=== PATIENT | male | born 1975 | race Caucasian/White ===

== ENCOUNTER 2020-11-19 09:19 | Emergency (ER) | payer OTHER, SELFPAY ==
[2020-11-19 09:33] VITALS: BP 177/112; PULSE 74; RESP 18; TEMP 36.8; O2SAT 99; BMI 36.2
[2020-11-19 09:44] VITALS: PULSE 74
[2020-11-19 09:54] VITALS: BP 157/103; PULSE 78; RESP 16; TEMP 36.8; O2SAT 98
--- NOTE | 2020-11-19 10:00 | XRR_ITS ---
PROCEDURE INFORMATION: Exam: XR Right Ankle Exam date and time: 11/19/2020 10:08 AM Age: 44 years old Clinical indication: Pain; Right; Prior surgery; Surgery date: 6+ months; Surgery type: RT ankle; Additional info: Pain, swelling, previous injury TECHNIQUE: Imaging protocol: XR Right ankle. Views: 3 or more views. COMPARISON: No relevant prior studies available. FINDINGS: Bones/joints: Orthopedic hardware noted along medial and lateral malleoli. Dystrophic calcification along the lateral aspect of the tibial metaphysis. No evidence of acute fracture. Ankle mortise intact. Soft tissues: Diffuse soft tissue swelling the ankle. XR/XR ankle RT min 3V* [id number] IMPRESSION: 1. Diffuse soft tissue swelling of the right ankle. 2. No acute fracture or dislocation. Chronic changes.
--- NOTE | 2020-11-19 10:47 | W.ED.EXTPRO ---
HPI - Extremity Problem General: Chief complaint: Extremity Problem,Nontraumatic Stated complaint: R ANKLE PAIN Time Seen by Provider: 11/19/20 09:35 Source: patient Mode of arrival: ambulatory Limitations: no limitations History of Present Illness: HPI Narrative: 44-year-old male complaining of left ankle pain, redness, swelling, and stiffness for the past 2 days. No recent trauma. He had surgery 12 years ago, initially with ORIF, then revised 1 year later with tightrope fixation for ankle syndesmosis. He has had a few instances where he is sprained the ankle and to become slightly swollen or sore, but this is the first time he has had significant pain and redness directly over the incision scar. He has tried icing, applying topical NSAID, rest, wearing a brace. He denies any recent illnesses-strep throat, UTI, pneumonia etc. Denies fever or systemic symptoms such as body aches or chills. The pain is at its worst on the first few steps after resting. Denies history of gout. No recent dietary changes?restrictive keto diet or excessive beer intake etc. MD Complaint: joint swelling and joint pain Onset (ago): day(s) Pain Consistency: constant Location: left, lower extremity and other (Ankle) Exacerbating factors: range of motion, weight bearing, walking, exertion and palpation Associated symptoms: Deny arthralgias, fever(s), myalgias or rash Review of Systems General: Reports: 10 or more systems reviewed and unremarkable except in HPI and below Const: Denies: fever(s) Resp: Denies: dyspnea, productive cough or wheezing GI: Denies: abdominal pain, nausea or vomiting : Denies: difficulty urinating, dysuria or urinary frequency Musc: Reports: joint pain, joint swelling, joint redness, joint warmth, joint stiffness and limited range of motion Skin/Breast: Reports: erythema; Denies: rash or pruritus Neuro: Denies: headache(s), numbness in extremities or weakness in extremities Physical Exam Const: COMMON NORMALS: no acute distress, patient oriented x3, healthy appearing and alert GENERAL APPEARANCE: cooperative, comfortable and well developed; not in distress, not anxious and not ill appearing ORIENTATION/CONSCIOUSNESS: Yes oriented to person, Yes oriented to place and Yes oriented to time HENMT: COMMON NORMALS: normocephalic and atraumatic HEAD & SCALP: normocephalic and atraumatic FACE & SINUS: normal facial exam and face symmetric Eye: COMMON NORMALS: Equal, round and reactive pupils present, EOMs intact bilaterally, conjunctivae normal and no scleral icterus CONJUNCTIVA: Yes conjunctivae normal PUPIL: Yes Equal, round and reactive pupils present Resp: COMMON NORMALS: normal respiratory effort and No use of accessory muscles EFFORT & INSPECTION: Yes able to speak in complete sentences Cardio: COMMON NORMALS: regular rate and regular rhythm JUGULAR VENOUS DISTENTION: no JVD RATE: regular rate RHYTHM: regular rhythm GI: COMMON NORMALS: Soft to palpation PALPATION: Yes Soft to palpation, No Tenderness to palpation present (GI), No Guarding due to palpation present (GI) and No Rigid due to palpation Extremity: LEFT LOWER EXTREMITY: Yes ankle joint Left ankle: Yes inspection (Swelling and redness over the medial malleolus), Yes palpation (Point tenderness over the medial malleolus), Yes ROM (Restricted due to pain) and Yes neurovascular exam (Intact) Neuro: COMMON NORMALS: patient oriented x3 SENSORIUM/ORIENTATION: Yes alert, Yes oriented to person, Yes oriented to place and Yes oriented to time Skin: COMMON NORMALS: no rashes or lesions noted, no wounds, turgor normal and no jaundice GENERAL SKIN EXAM: no rashes or lesions noted and turgor normal Course Vital Signs: Vital signs: Vital Signs Temperature 98.3 F 11/19/20 09:54 Pulse Rate 78 11/19/20 09:54 Respiratory Rate 16 11/19/20 09:54 Blood Pressure 157/103 11/19/20 09:54 Pulse Oximetry 98 11/19/20 09:54 MDM - Extremity (Nontraumatic) MDM Narrative: Medical decision making narrative: 44-year-old male with left ankle swelling, pain, and redness for 2 days, nontraumatic. History of fracture with operative repair 12 years ago-joint is very functional at baseline. WBC count normal, with no left shift. CRP elevated, uric acid elevated 8.1. Findings consistent with acute gouty arthritis-Decadron 10 mg IM, Toradol 30 mg IM, Colcrys 1.2 mg x 1 followed by 0.6 mg 1 hour later. Discussed that he can repeat the same regimen at the first sign of any recurrence in the future. Indomethacin+ prednisoneX3 days, recommend ufxx-uko-unhlian PPI for 10 days to prevent gastritis Differential Diagnosis: Extremity Problem Differential Diagnosis: Likely gout, cellulitis and lower extremity edema Medical Records: Attestation: I reviewed the patient's medical records. Lab Data: Attestation: I reviewed the patient's lab results. Labs: Lab Results 11/19/20 11/19/20 Range/Units 10:47 10:47 WBC 9.1 (4.0-10.0) 10^3/ uL RBC 4.95 (4.1-5.3) 10^6/u L Hgb 15.3 (11.7-16.6) g/dL Hct 44.9 (42.0-52.0) % MCV 90.7 (80-94) fL MCH 30.9 (28.0-34.0) pg MCHC 34.1 (30.0-36.0) g/dL RDW 11.5 L (12.1-15.1) % Plt Count 219 (130-400) 10^3/c mm MPV 10.4 (7.4-10.4) fL Neut % (Auto) 71.9 % Lymph % (Auto) 20.1 % [place] % (Auto) 6.5 % Eos % (Auto) 0.9 % Baso % (Auto) 0.4 % Neut # (Auto) 6.50 (1.8-7.7) 10^3/u L Lymph # (Auto) 1.8 (0.8-4.8) 10^3/u L [place] # (Auto) 0.6 (0.2-0.9) 10^3/u L Eos # (Auto) 0.1 (0.0-0.8) 10^3/u L Baso # (Auto) 0.0 (0.0-0.1) 10^3/u L Nucleated RBC % (a uto) 0 % Nucleated RBCs # 0.0 /100WBC Uric Acid 8.1 H (3.4-7.0) mg/dL C-Reactive Protein 9.9 H (0.0-4.9) mg/L Discharge Plan Discharge Patient Disposition: Home Clinical Impression: Gout Qualifiers: Gout site: ankle Gout etiology: unspecified cause Chronicity: acute Laterality: left Qualified Code(s): M10.9 - Gout, unspecified Condition: Stable Prescriptions: New Colcrys 0.6 mg tablet See Rx Instructions .ROUTE .COMPLEX Qty: 30 RF: 0 prednisone 20 mg tablet 60 mg PO DAILY 3 Days Qty: 9 RF: 0 indomethacin 50 mg capsule 50 mg PO BID PRN (Reason: pain) 3 Days Qty: 20 RF: 0 No Action Tylenol 325 mg Tablet 325 mg PO QID PRN (Reason: PAIN/HEADACHE) RF: 0 ibuprofen 200 mg Tablet 200 mg PO Q6H PRN (Reason: PAIN/HEADACHE) RF: 0 diclofenac sodium 1 % gel See Rx Instructions .ROUTE .COMPLEX RF: 0 Discharge Orders: Discharge ED (Routine); Ordered 11/19/20 Ordered By: Bonita Conner Discharge Diet: Advance as tolerated Discharge Activity: Increase activity as tolerated Patient Instructions: Acute Gouty Arthritis (ED) Activity Restrictions/Additional Instructions: Drink plenty of water, take an diwz-bfn-rkzrdzd antacid such as Prevacid or Prilosec for the next 10 days to prevent stomach irritation from the medicine. Rest, keep your ankle elevated, apply cold pack, increase activity slowly as tolerated. Follow-up with your primary care doctor in the next 3 days to make sure your symptoms are improving. Return immediately to the ER if you develop fever, worsening swelling or pain, or any other concerns. Stand Alone Forms: Work/School Release Coding Level of Care Code ED Mender Knit Goods for Miladys Lockwood
[2020-11-19 11:02] LABS: Basophils % 0.4 %; Eosinophils # 0.1 10^3/uL (0.0-0.8); Eosinophils % 0.9 %; Hematocrit 44.9 % (42.0-52.0); Hemoglobin 15.3 g/dL (11.7-16.6); Lymphocytes # 1.8 10^3/uL (0.8-4.8); Lymphocytes % 20.1 %; Mean Corpuscular HGB Conc 34.1 g/dL (30.0-36.0); Mean Corpuscular Hemoglobin 30.9 pg (28.0-34.0); Mean Corpuscular Volume 90.7 fL (80-94); Mean Platelet Volume 10.4 fL (7.4-10.4); Monocytes # 0.6 10^3/uL (0.2-0.9); Monocytes % 6.5 %; Neutrophils % 71.9 %; Nucleated Red Blood Cells % 0 %; Platelet Count 219 10^3/cmm (130-400); Red Blood Count 4.95 10^6/uL (4.1-5.3); Red Cell Distribution Width 11.5 % (12.1-15.1); White Blood Count 9.1 10^3/uL (4.0-10.0)
[2020-11-19 11:43] LABS: C Reactive Protein 9.9 mg/L (0.0-4.9); Uric Acid 8.1 mg/dL (3.4-7.0)
[2020-11-19] MEDS: ketorolac 30 mg/mL INJ IM (12:05)
[2020-11-19] MEDS: dexamethasone 10 mg/mL INJ IM (12:05)
[2020-11-19 12:40] VITALS: BP 157/103; PULSE 81; RESP 16; O2SAT 97
== END 2020-11-19 12:41 | disposition home or self-care (01) ==
PROVIDERS: Emergency Provider Family Medicine
DX: M10.9 Gout, unspecified (principal)
CPT/HCPCS: 73610; 84550; 85025; 86140; 96372; 99283; J1100; J1885

== ENCOUNTER 2021-04-02 07:03 | Emergency (ER) | payer OTHER, SELFPAY ==
--- NOTE | 2021-04-02 07:13 | XRR_ITS ---
PROCEDURE INFORMATION: Exam: XR Left Ankle Exam date and time: 04/02/2021 7:13 AM Age: 45 years old Clinical indication: Left; Patient HX: Rolled ankle yesterday pain to lateral ankle; Additional info: Injury TECHNIQUE: Imaging protocol: XR Left ankle. Views: 3 or more views. COMPARISON: No relevant prior studies available. FINDINGS: Bones/joints: No acute bony injury or malalignment in the left ankle. Calcaneal spur. Soft tissues: No radiopaque foreign body. XR/XR ankle LT min 3V* [id number] IMPRESSION: No acute bony injury or malalignment in the left ankle.
[2021-04-02 07:17] VITALS: BP 177/121; PULSE 87; RESP 18; TEMP 36.4; O2SAT 94; BMI 36.2
[2021-04-02 07:26] VITALS: BP 178/117; PULSE 76; RESP 16; TEMP 36.9; O2SAT 98
--- NOTE | 2021-04-02 07:51 | W.ED.LOWEXIN ---
HPI - Extremity Injury (Lower) General: Chief Complaint: Extremity Injury, Lower Stated Complaint: L Ankle Pain Time Seen by Provider: 04/02/21 07:04 Source: patient Mode of arrival: ambulatory Limitations: no limitations History of Present Illness: HPI Narrative: Patient is a 45-year-old male who presents to ED today for evaluation of his left ankle injury. Patient tells me he was chasing his dog in his yard and it was dark so he did not see a hole in the tall grass and states he twisted his ankle. Patient has been ambulatory on the extremity since the event but with a limp. complaint: ankle injury Onset (ago): day(s) (yesterday evening) Type of Injury: inversion Place: home Severity: moderate Relieving factors: immobilization Exacerbating factors: weight bearing, movement and palpation Associated symptoms: Reports no associated symptoms Other symptoms: none Review of Systems Musc: Reports: joint pain (L ankle) and joint swelling (L ankle) Neuro: Denies: numbness in extremities, weakness in extremities or sensory changes Physical Exam Const: COMMON NORMALS: no acute distress, average body habitus, patient oriented x3, no limitations, healthy appearing, alert and well nourished Extremity: GENERAL: Yes normal exam except as noted LEFT LOWER EXTREMITY: Yes ankle joint Left ankle: Yes palpation (TTP lateral malleolus) and Yes neurovascular exam (normal) Neuro: COMMON NORMALS: patient oriented x3, moves all extremities, no focal motor deficits and no sensory deficits noted SENSORIUM/ORIENTATION: Yes alert Skin: COMMON NORMALS: no rashes or lesions noted GENERAL SKIN EXAM: no rashes or lesions noted TRAUMA: no lacerations or abrasions Course Vital Signs: Vital signs: Vital Signs Temperature 98.5 F 04/02/21 07:26 Pulse Rate 76 04/02/21 08:00 Respiratory Rate 16 04/02/21 08:00 Blood Pressure 178/117 04/02/21 08:00 Pulse Oximetry 98 04/02/21 08:00 MDM - Extremity Injury (Lower) Imaging Data^: XR L ankle: Radiologist's impression: [facility] [address] [place] [address] XRay Report Signed Patient: Marc Skinner Unit #: [id number] : [id number] Age/Sex: 45 / M ADM Date: 04/02/21 Loc: ER Room/Bed: Attending Dr: Ordering Provider/Ordering MD: Erica Townsend Date of Service: 04/02/21 Procedure(s): XR ankle LT min 3V* 15414 Accession Number(s): [id number] Report Number: [id number] PROCEDURE INFORMATION: Exam: XR Left Ankle Exam date and time: 04/02/2021 7:13 AM Age: 45 years old Clinical indication: Left; Patient HX: Rolled ankle yesterday pain to lateral ankle; Additional info: Injury TECHNIQUE: Imaging protocol: XR Left ankle. Views: 3 or more views. COMPARISON: No relevant prior studies available. FINDINGS: Bones/joints: No acute bony injury or malalignment in the left ankle. Calcaneal spur. Soft tissues: No radiopaque foreign body. XR/XR ankle LT min 3V* [id number] IMPRESSION: No acute bony injury or malalignment in the left ankle. Dictated By: Felix Pena MD Signed By: Felix Pena MD Signed Date/Time: 04/02/21810 DD/ 9 Discharge Plan Discharge Patient Disposition: Home Clinical Impression: Left ankle sprain Qualifiers: Encounter type: initial encounter Involved ligament of ankle: unspecified ligament Qualified Code(s): S93.402A - Sprain of unspecified ligament of left ankle, initial encounter Condition: Stable Prescriptions: No Action Tylenol 325 mg Tablet 325 mg PO QID PRN (Reason: PAIN/HEADACHE) RF: 0 ibuprofen 200 mg Tablet 200 mg PO Q6H PRN (Reason: PAIN/HEADACHE) RF: 0 diclofenac sodium 1 % gel See Rx Instructions .ROUTE .COMPLEX RF: 0 Colcrys 0.6 mg tablet See Rx Instructions .ROUTE .COMPLEX Qty: 30 RF: 0 Discharge Orders: Discharge ED (Routine); Ordered 04/02/21 Ordered By: Erica Townsend Patient Instructions: Ankle Sprain (ED), RICE Therapy (ED) Coding Level of Care Code ED Dipper Machine Operator for Chg Fwd Exam Expanded Problem Focused
[2021-04-02 08:00] VITALS: BP 178/117; PULSE 76; RESP 16; O2SAT 98
== END 2021-04-02 08:03 | disposition home or self-care (01) ==
PROVIDERS: Emergency Provider Physician Assistant
DX: S93.402A Sprain of unspecified ligament of left ankle, initial encounter (principal); X50.1XXA Overexertion from prolonged static or awkward postures, initial encounter
CPT/HCPCS: 73610; 99282

== ENCOUNTER 2022-11-04 06:41 | Emergency (ER) | payer OTHER, SELFPAY ==
--- NOTE | 2022-11-04 06:45 | W.ED.BACK ---
HPI - Back Pain/Injury General: Chief Complaint: Back Pain/Injury Stated Complaint: back pain/right foot numb Time Seen by Provider: 11/04/22 06:44 Source: patient Mode of arrival: ambulatory History of Present Illness: 46-year-old male presents emergency room complaining of low back pain that began about 4 weeks ago intermittently been bothering him since. It is progressively worsened radiates down his right leg numbness in his right great toe. No recent injury or trauma he states he was playing with one of his children and seemed to tweak his back several weeks ago when this all first started. No falls no motor vehicle accidents or other particular injuries. She is tried some jrei-cws-ozbiwux medications also taken medications previously given for his back he does not recall what it is he thinks that some sort of muscle relaxer. No difficulty with bowel or bladder control. MD elicited complaint: back pain Onset (ago): week(s) (4) Timing: intermittent and progressively worsening Severity: moderate Similar Symptoms Previously: Yes Quality: sharp Location: lumbar spine Radiation: right upper leg and right leg below the knee Exacerbating factors: movement and sitting upright Associated symptoms: Deny abdominal pain, arthralgias, chills, change in bowel habits, difficulty walking, dysuria, fatigue, fecal incontinence, fever(s), hematuria, myalgias, nausea, numbness, syncope, tingling/numbness/burning, urinary frequency, urinary urgency, vomiting or weakness Review of Systems Const: Denies: fever(s), chills, fatigue or malaise ENMT: Denies: throat pain, ear or mastoid pain, nasal discharge or nasal congestion Card: Denies: syncope Resp: Denies: dyspnea, productive cough or non-productive cough GI: Denies: abdominal pain, nausea, vomiting, fecal incontinence or change in bowel habits : Denies: dysuria, urinary frequency, urinary urgency or hematuria Musc: Reports: back pain and extremity pain Skin/Breast: Denies: rash or pruritus Neuro: Denies: difficulty walking PFS ED PFSH: Medical History (Updated 11/04/22 @ 08:36 by Nba Jorge DO) Back pain Cervical disc disease Surgical History (Updated 11/04/22 @ 07:48 by Nba Jorge DO) H/O cervical discectomy Social History Smoking and tobacco status: never smoked Physical Exam Const: COMMON NORMALS: no acute distress GENERAL APPEARANCE: cooperative and comfortable ORIENTATION/CONSCIOUSNESS: Yes awake, Yes oriented to person, Yes oriented to place and Yes oriented to time HENMT: COMMON NORMALS: normocephalic, atraumatic and hearing grossly normal bilaterally HEAD & SCALP: normocephalic and atraumatic Resp: COMMON NORMALS: normal respiratory effort, No retractions, No use of accessory muscles and clear to auscultation bilaterally AUSCULTATION: clear to auscultation bilaterally Cardio: COMMON NORMALS: regular rate, regular rhythm and No murmurs present (Cardio) RATE: regular rate RHYTHM: regular rhythm Extremity: COMMON NORMALS: normal to inspection, capillary refill normal, no clubbing, cyanosis or edema, no calf tenderness and no pedal edema Neuro: SENSORIUM/ORIENTATION: Yes oriented to person, Yes oriented to place and Yes oriented to time OTHER: Deep tendon reflexes +2 of 4 at the patellar tendons +2/4 at the left Achilles. Right Achilles tendon reflex weakly elicitable. Dorsum plantarflexion strength 5 of 5 decreased sensation in the right great toe. Skin: COMMON NORMALS: no rashes or lesions noted GENERAL SKIN EXAM: no rashes or lesions noted Course Vital Signs: Vital signs: Vital Signs Temperature 97.9 F 11/04/22 06:46 Pulse Rate 86 11/04/22 07:39 Respiratory Rate 16 11/04/22 06:46 Blood Pressure 149/117 11/04/22 07:39 Pulse Oximetry 93 11/04/22 07:39 Oxygen Delivery Me thod 11/04/22 07:39 MDM - Back Pain/Injury Medical Decision Making No recent trauma although there is C. Be a precipitating nontraumatic event when he was playing with his daughter. He states he has had previous imaging in his back and was told he had degenerative disc disease. Given the new numbness and loss of reflexes in the right Achilles we will refer him for MRI. Follow-up with orthopedic surgery. Discharge medications as above. Medical Records I reviewed the patient's medical records. Labs I reviewed the patient's lab results. Discharge Plan Discharge Patient Disposition: Home Clinical Impression: Lumbar radiculopathy Condition: Stable Prescriptions: New prednisone 20 mg tablet 20 mg PO TID Qty: 15 0RF Rx Instructions: 1 p.o. 3 times daily x3 days, 1 p.o. twice daily x2 days, 1 p.o. daily x2 days diclofenac sodium 75 mg tablet,delayed release (DR/EC) 75 mg PO Q12H PRN (Reason: pain) Qty: 20 0RF tizanidine 4 mg tablet 4 mg PO Q6H PRN (Reason: muscle spasticity) Qty: 20 0RF Rx Instructions: do not exceed 3 doses per 24 hrs hydrocodone-acetaminophen 5-325 mg tablet 1 tab PO Q6H PRN (Reason: pain) Qty: 15 0RF Discontinued diclofenac sodium 1 % gel See Rx Instructions .ROUTE .COMPLEX Rx Instructions: topically, USE DIRECTED No Action Colcrys 0.6 mg tablet See Rx Instructions .ROUTE .COMPLEX Qty: 30 1RF Rx Instructions: 2 pills at once, then another pill 1 hour later. Repeat the same dosing at the earliest signs of flare-up Discharge Orders: Discharge ED (Routine); Ordered 11/04/22 Ordered By: Nba Jorge Patient Instructions: Opioid Safety, Pain Management Activity Restrictions/Additional Instructions: You were seen today for low back pain with radiation of the pain into your right leg. Recommend that you have an MRI which case management will set up for you and follow-up with orthopedic spine surgery. You are discharged home with anti-inflammatories prednisone and a muscle relaxer. If your symptoms worsen return to the emergency room. Coding Level of Care Code ED Actuarial Analyst for Miladys Lockwood
[2022-11-04 06:46] VITALS: BP 174/122; PULSE 83; RESP 16; TEMP 36.6; O2SAT 95; BMI 36.6
[2022-11-04] MEDS: morphine 4 mg/mL SDV 1 mL IVP (07:24)
[2022-11-04] MEDS: dexamethasone 10 mg/mL INJ IVP (07:24)
[2022-11-04] MEDS: ketorolac 30 mg/mL INJ IVP (07:24)
[2022-11-04] MEDS: orphenadrine 30 mg/mL Inj 2 mL 60 MG IVP (07:25)
[2022-11-04 07:39] VITALS: BP 149/117; PULSE 86; O2SAT 93
--- NOTE | 2022-11-05 11:43 | DCPLANNER ---
Addendum entered by Andressa Valdivia 11/13/22 07:56: Patient had a follow up appointment with ortho - patient did attend appointment Patient had an outpatient MRI - patient did attend appointment Addendum entered by Andressa Valdivia 11/07/22 09:36: Patient has a follow up appointment scheduled for October at 3:[address] Mayfield at ortho. Clinic will call patient with appointment information. Addendum entered by Andressa Valdivia 11/07/22 07:10: Patient has an MRI scheduled for October at 4:45. Centralized scheduling will call patient with appointment information. Original Note: satellite manager had message to schedule an outpatient MRI for patient. satellite manager faxed patients information to centralized scheduling, who will call patient with appointment information. satellite manager also had message to schedule a follow up appointment for patient with ortho. satellite manager sent patients information sent to the front office staff at ortho. Patients information will be printed and reviewed. Clinic will call patient with appointment information.
--- NOTE | 2022-11-11 17:07 | DCPLANNER ---
11.10. - patient was called due to no primary care physician - [facility]
== END 2022-11-04 08:54 | disposition home or self-care (01) ==
PROVIDERS: Emergency Provider Family Medicine
DX: M54.16 Radiculopathy, lumbar region (principal)
CPT/HCPCS: 96374; 96375; 99284; J1100; J1885; J2270; J2360

== ENCOUNTER 2022-11-07 16:21 | Outpatient (CLI) | payer OTHER, SELFPAY ==
--- NOTE | 2022-11-07 16:33 | MR_ITS ---
WS: [id number] MRI LUMBAR SPINE NONCONTRAST HISTORY: LUMBAR PAIN WITH RADICULOPATHY, RIGHT foot numbness. COMPARISON: None available. TECHNIQUE: Sagittal and axial multisequence imaging is submitted. Significant metallic artifact on the localizer the cervical region. Very mild straightening of the normal lumbar spine. No fractures or marrow edema. Mild disc desiccation throughout the lumbar spine. Conus terminates normally at L2. L1-L2: Normal. L2-L3: Mild ligamentum flavum and facet arthritis. L3-L4: Mild annular disc bulging with mild ligamentum flavum and facet arthritis. No stenosis or disc protrusion. L4-L5: Mild annular disc bulging with encroachment upon the ventral thecal sac. Mild encroachment upo n the subarticular recesses. Mild ligamentum flavum and facet arthritis. No significant stenosis. L5-S1: Mild annular disc bulging with a moderate RIGHT paracentral disc protrusion contacting and def orming the thecal sac. There is additional area of decreased signal on the T1 and T2 sequences at the same level as the disc protrusion. There is displacement of the thecal sac. This may be a disc fragm ent or mass. Mass measures 14 mm in length and transversely by 10 mm. There is significant deformity on the thecal sac and the nerve roots at the level of L5-S1 and greater on the RIGHT. Mild bilateral foraminal stenosis. MR/MR lumbar spine wo con* [id number] IMPRESSION: 1. Moderate RIGHT paracentral disc protrusion at L5-S1 with contact on the RIG HT lateral thecal sac and nerve roots, most significant involving the reversal RIGHT S1 nerve root. 2. There is an additional soft tissue mass which appears separate from the dis c protrusion but at the same level deforming and displacing the thecal sac. 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 Recommend follow-up lumbar spine MRI with contrast.
== END 2022-11-07 16:22 | disposition home or self-care (01) ==
LOC: RAD 16:24
PROVIDERS: Visit Provider Family Medicine
DX: M54.16 Radiculopathy, lumbar region (principal); R20.0 Anesthesia of skin; M51.27 Other intervertebral disc displacement, lumbosacral region
CPT/HCPCS: 72148

== ENCOUNTER → 2022-11-12 13:19 | Outpatient (BNVA) | payer OTHER, SELFPAY | PROVIDERS: Referring Provider Family Medicine; Visit Provider Orthopaedic Surgery | DX: M54.16 Radiculopathy, lumbar region (principal); M51.26 Other intervertebral disc displacement, lumbar region | CPT/HCPCS: 72110; 99204 ==

== ENCOUNTER 2022-11-22 05:58 | Day surgery (SDC) | payer OTHER, SELFPAY ==
[2022-11-18 09:06] VITALS: BMI 36.6
--- NOTE | 2022-11-18 09:43 | ANES.PREANE2 ---
Pre-Anesthetic Assessment Height/Weight: Height 1.83 m Weight 122.47 kg Operation Date: 11/22/22 10:40 Proposed Procedures p Discectomy: RT L5-S1 Microdiscectomy 32234/M54.16(Right) - Bola Mayfield DO Familial anesthetic complications: Woke up during previous surgeries. First time was a failed regional procedure on his hand. And he said after he felt the incision, they told him they needed to get him off to sleep and he noted that he was awake for at least 5 minutes following this statement because he had visual access to the wall clock. Second time was an ankle procedure and he says he doesn't remember it, but they told him afterwards that he required and extra top off of whatever they gave him. He also had a block for this procedure which did not even last til discharge from recovery that day Social No alcohol and No tobacco Exam alert, oriented x 3, clear to auscultation bilaterally and regular rate & rhythm Airway Mallampati: Class IV Dentition: full CV/HEM Hypertension (Newly started on HCTZ a only a few days ago - will get same day BMP) Metabolic Morbid Obesity Anesthetic Plan ASA status: 2 Anesthesia: General Risk of > 500 ml blood loss (7ml/kg in children): No Medications/Allergies Home Medications Medication Instructions Recorded Confirmed Last Taken Type diclofenac sodium 75 mg 75 mg PO Q12H PRN pain #20 tabs 11/04/22 11/18/22 11/17/22 Rx tablet,delayed release prednisone 20 mg tablet 20 mg PO TID #15 tabs 11/04/22 11/18/22 11/18/22 Rx cyclobenzaprine 10 mg tablet 10 mg PO TID PRN muscle spasm #30 11/12/22 11/18/22 11/17/22 Rx tabs gabapentin 300 mg capsule 300 mg PO TID #90 caps 11/12/22 11/18/22 11/17/22 Rx hydrocodone 5 mg-acetaminophen 325 1 tab PO Q4H PRN pain 7 days #40 11/12/22 11/18/22 11/17/22 Rx mg tablet tabs hydrochlorothiazide 12.5 mg tablet 12.5 mg PO 1XD 11/18/22 11/18/22 11/17/22 History Allergies Allergy/AdvReac Type Severity Reaction Status Date / Time No Known Allergies Allergy Verified 11/12/22 13:41 PFSH Anesthesia Medical History Back pain Cervical disc disease Surgical History H/O cervical discectomy Social History Smoking and tobacco status: never smoked Data Anesthesia Cardiac Studies: No Data to Display
[2022-11-22] VITALS (8 sets, daily range): BP systolic 152–176; BP diastolic 89–112; PULSE 67–87; RESP 11–23; TEMP 36.1–36.6; O2SAT 95–98
--- NOTE | 2022-11-22 06:30 | W.PM.OPSUD ---
Surgery/Procedure H&P Update DATE OF PROCEDURE: November 22, 2022 DATE H&P PERFORMED: 11/12/22 H&P UPDATE INFORMATION: I have reviewed H&P completed within last 30 days, I have examined patient prior to procedure and No changes to prior documentation PREOP DIAGNOSIS: Herniated nucleus pulposus to the right L5-S1. Lumbar radiculopathy PLANNED PROCEDURE: Operation Date: 11/22/22 08:45 Proposed Procedures p Discectomy: RT L5-S1 Microdiscectomy 48967/M54.16(Right) - Bola Mayfield DO
[2022-11-22] MEDS: sodium chloride 0.9% 1,000 ML 30 ML IV (06:36)
--- NOTE | 2022-11-22 07:16 | P.ANESUD_ITS ---
Pre-Anesthetic Update Pre-Anesthetic Assessment: Date of Surgery/Procedure: 11/22/22 Preop [place] gnosis: Herniated nucleus pulposus to the right L5-S1. Lumbar radiculopathy Proposed Procedure: Operation Date: 11/22/22 08:45 Proposed Procedures p Discectomy: RT L5-S1 Microdiscectomy 44344/M54.16(Right) - Bola Mayfield, DO Any changes to Pre-Anesthetic Assessment?: No Last Intake: Intake Last Liquid Date 11/21/22 Last Liquid Time 23:00 Last Solid Date 11/21/22 Last Solid Time 22:00 Vitals: Temperature 97.8 F 11/22/22 06:34 Temperature Source Temporal Artery S can 11/22/22 06:34 Pulse Rate 74 11/22/22 06:34 Respiratory Rate 16 11/22/22 06:34 Blood Pressure 176/107 11/22/22 06:34 Blood Pressure Veronica n 130 11/22/22 06:34 Pulse Oximetry 97 11/22/22 06:34 Oxygen Delivery Me thod 11/22/22 06:34 Exam: Pre-Anes Outpt Exam: alert, oriented x 3, clear to auscultation bilaterally and regular rate & rhythm Cardiac Studies: No Data to Display
[2022-11-22 07:52] LABS: Blood Urea Nitrogen 19 mg/dL (6-20); Calcium 9.4 mg/dL (8.5-10.5); Carbon Dioxide 32 mmol/L (22-29); Chloride 99 mmol/L (98-107); Glomerular Filtration Rate 80.8 mL/min (90-130); Glucose 87 mg/dL (65-115); Osmolality Calculated 294 mOsm/kg (285-295); Sodium 141 mmol/L (136-145)
[2022-11-22 07:53] LABS: Anion Gap 14.8 (5-19); Potassium 4.8 mmol/L (3.5-5.1)
[2022-11-22] MEDS: ceFAZolin 2,000 MG in sodium chloride 0.9% (plus) 50 ML 100 MG IV (07:59)
[2022-11-22] MEDS: lidocaine-epi 1% 20 mL INJ INJECTION (08:45)
--- NOTE | 2022-11-22 10:07 | XR_ITS ---
WS: [id number] EXAMINATION: XR lumbar spine 1V [id number] L-SPINE : 1 views REASON FOR EXAM: or pics COMPARISON: None available. ORDER DATE: 11/22/2022 10:07 AM FINDINGS/IMPRESSION: A single lateral C-arm view demonstrates surgical device in alignment with the L5-S1 disc space. Tota l fluoroscopy time 17.1 seconds
--- NOTE | 2022-11-22 10:30 | P.OP_ITS ---
Operative Report Date of procedure: November 22, 2022 Pre-op diagnosis: Preop Diagnosis Herniated nucleus pulposus to the right L5-S1. Lumbar radiculopathy Post-op diagnosis: same Procedure done: 1. L5/S1 laminectomy with partial facetectomy and diskectomy Surgeon: Bola Mayfield Estimated blood loss (mL): 25 Procedure: 1. L5/S1 laminectomy with partial facetectomy and diskectomy Patient is brought to the operative suite. After undergoing anesthesia they are placed in the prone position. All areas of impingement are well padded. Patient is then prepped and draped in the normal sterile fashion. A skin incision is made over the L5/S1 level. This is confirmed under c-arm gu idance. A series of dilators are passed and the tubular retractor is docked on the L5 lamina. A bovie is used to clear the soft tissue off the lamina and the L 5/S1 facet joint. A high speed mercedes is then used to perform the laminectomy and take down the medial aspect of the L 5/S1 facet joint. A kerrison rongeure was then used to take down the remaining lamina and smooth the edge of the laminectomy up to the point where the ligamentum flavum attaches. Attention was then brought to the medial aspect of the facet joint. The remaining medial aspect of the superior and inferior aspect of the facet joint were taken down with the kerrison from the pedicle of L5 to S1. The facet joint had significant hypertrophy. Attention was then brought to the Ligamentum Flavum. The ligament was taken d own from the lamina of L5 to S1 and out medially to the remaining facet joint. The ligament was thick. The dura was then exposed. The dura was in good repair. The S1 nerve root was retracted medially. There is a large venous plexus that was bipolared. This was identified holes made in the disc is material was removed the disc base was irrigated multiple fragments of disc were removed. The L5 nerve was then traced with a curette out the L5/S1 foramen and found to be adequately decompressed. The S1 nerve was traced with a curette around the S1 pedicle. The lateral recess was opened with a kerrison helping to further decompress the S1 nerve. Wound is then irrigated copiously with saline and surgiflo is used to stop any bleeding. The tubular retractor is removed and the wound is closed with vicryl and monocryl suture. Glue is then used to protect the wound. A sterile dressing is then placed. Patient was then placed in the supine position and transferred to the PACU in stable condition.
[2022-11-22] MEDS: HYDROcodone-acetaminophen 10-325 mg Tablet 1 TAB PO (10:47)
--- NOTE | 2022-11-22 12:42 | ANE.PACU2 ---
Inpatient post-anesthesia follow up: Airway intact: Yes Vital signs: Temperature 97.2 F Pulse Rate 78 Respiratory Rate 16 Blood Pressure 152/99 Pulse Oximetry 98 Oxygen Delivery Me thod Room Air Oxygen Flow Rate Fraction of Inspir ed Oxygen Hydration adequate: Yes Nausea and vomiting: No Pain level: 1 Mental status: Baseline
== END 2022-11-22 11:33 | disposition home or self-care (01) ==
PROVIDERS: Anesthesiology; PCP Family Medicine; Visit Provider Orthopaedic Surgery
PROC: (CPT 63030; principal; 2022-11-22 08:25)
DX: M51.16 Intervertebral disc disorders with radiculopathy, lumbar region (principal); I10 Essential (primary) hypertension; E66.01 Morbid (severe) obesity due to excess calories; Z68.36 Body mass index [BMI] 36.0-36.9, adult
CPT/HCPCS: 63030; 36415; 72020; 76000; 80048; J0690; J1100; J1170; J1885; J2405; J2704; J2710; J3010; J3490; J7030

== ENCOUNTER → 2022-12-10 08:23 | Outpatient (BNVA) | payer OTHER, SELFPAY | PROVIDERS: PCP Family Medicine; Visit Provider Orthopaedic Surgery | DX: Z47.89 Encounter for other orthopedic aftercare (principal) | CPT/HCPCS: 99024 ==

== ENCOUNTER 2023-01-13 03:13 | Emergency (ER) | payer OTHER, SELFPAY ==
[2023-01-13 03:22] VITALS: BP 144/88; PULSE 86; RESP 16; TEMP 37.2; O2SAT 98; BMI 35.9
--- NOTE | 2023-01-13 03:25 | XRR_ITS ---
PROCEDURE INFORMATION: Exam: XR Left Knee Exam date and time: 01/13/2023 3:30 AM Age: 47 years old Clinical indication: Left; Patient HX: Patient felt a pop in knee three days ago. C/O worsening pain and unable to bear weight. ; Additional info: L knee injury TECHNIQUE: Imaging protocol: Radiologic exam of the left knee. Views: 3 views. AP Obilque Lateral COMPARISON: No relevant prior studies available. FINDINGS: Bones/joints: There is normal alignment without fractures or dislocations. The medial and lateral tibiofemoral compartments and patellofemoral compartment are unremarkable. There are no joint bodies. Soft tissues: There is a medium to large sized knee joint effusion. There are no radiopaque foreign bodies. There is [id number] knee region soft tissue swelling. Notes: Further evaluation for internal derangement of the knee may be performed with MRI. XR/XR knee LT 3V* [id number] IMPRESSION: No fractures or dislocation of the left knee. Medium to large sized knee joint effusion. [id number] knee region soft tissue swelling. Further evaluation for internal derangement of the knee may be performed with MRI.
[2023-01-13] MEDS: dexamethasone 4 mg Tablet 10 MG PO (03:59)
--- NOTE | 2023-01-13 03:59 | W.ED.EXTPRO ---
HPI - Extremity Problem General: Chief complaint: Extremity Injury, Lower Stated complaint: Left knee injury Time Seen by Provider: 01/13/23 03:20 Source: patient History of Present Illness: 47-year-old male with a history of knee swelling on and off for a few weeks. He presents 3 days after reinjuring the knee when he caught his daughter after stepping off of a curb when she fell. He felt a pop in the knee, and had searing pain with immediate swelling. He has had trouble walking on the knee since that time. He also has trouble bending and straightening the knee. No fever. No rash. No recent procedures on the knee. MD Complaint: extremity pain, joint swelling and joint pain Onset (ago): day(s) (3) Pain Consistency: constant Location: left and knee Quality: stabbing and aching Radiation: none Relieving factors: immobilization Exacerbating factors: range of motion and weight bearing Associated symptoms: Deny arthralgias, chest pain, fever(s), rash or short of breath Review of Systems Const: Denies: fever(s) Card: Denies: chest pain Resp: Denies: dyspnea GI: Denies: vomiting Skin/Breast: Denies: rash PFSH ED PFSH: Medical History Back pain Cervical disc disease Surgical History H/O cervical discectomy Social History Smoking and tobacco status: never smoked Physical Exam Const: COMMON NORMALS: no acute distress GENERAL APPEARANCE: cooperative; not ill appearing and not frail appearing HENMT: COMMON NORMALS: normocephalic, atraumatic and Normal external nose present HEAD & SCALP: normocephalic and atraumatic FACE & SINUS: normal facial exam and face symmetric NOSE: Normal external nose present Eye: COMMON NORMALS: Equal, round and reactive pupils present and EOMs intact bilaterally PUPIL: Yes Equal, round and reactive pupils present Neck/C-Spine: GENERAL: Yes trachea midline Chest: CHEST: Yes Symmetrical chest wall rise Resp: COMMON NORMALS: normal respiratory effort, No retractions, No use of accessory muscles and clear to auscultation bilaterally AUSCULTATION: clear to auscultation bilaterally Cardio: COMMON NORMALS: regular rate and regular rhythm RATE: regular rate RHYTHM: regular rhythm GI: COMMON NORMALS: Normal to inspection, nondistended, normoactive bowel sounds present Extremity: COMMON NORMALS: no pedal edema NARRATIVE EXTREMITY EXAM: Examination the left lower extremity reveals a moderate knee effusion. There is tenderness palpation over the lateral joint line and the inferior patellar facet. Ligamentous testing is guarded. Pain with passive extension. Neuro: RAYMUNDO COMA SCALE: document GCS findings Raymundo coma scale eye opening: Spontaneous [place] coma scale verbal response: Orientated [place] coma scale motor response: Obey commands Raymundo coma scale total score: 15 SENSORY EXAM: Yes extremities (intact) Psych: COMMON NORMALS: speech normal SPEECH: Yes normal speech Skin: COMMON NORMALS: no rashes or lesions noted GENERAL SKIN EXAM: no rashes or lesions noted Course Vital Signs: Vital signs: Vital Signs Temperature 98.9 F 01/13/23 03:22 Pulse Rate 92 01/13/23 04:01 Respiratory Rate 16 01/13/23 04:01 Blood Pressure 144/88 01/13/23 04:01 Pulse Oximetry 98 01/13/23 04:01 Oxygen Delivery Me thod Room Air 01/13/23 04:01 MDM - Extremity (Nontraumatic) Medical Decision Making 47-year-old male with a knee injury in which he heard a pop, and had immediate effusion. He does have a history of gout, but this is less likely. He is given Toradol and dexamethasone and a pain pill here. Knee x-ray reveals knee effusion, with no fracture or deformity. We will have him follow-up with orthopedics as an outpatient. Medrol Dosepak, pain control, and immobilization for now. Discharge Plan Discharge Patient Disposition: Home Clinical Impression: Effusion of knee joint, left Acute internal derangement of knee Qualifiers: Laterality: left Qualified Code(s): M23.92 - Unspecified internal derangement of left knee Condition: Stable Prescriptions: New Medrol (Kel[place]) 4 mg tablets,dose pack See Rx Instructions .ROUTE .COMPLEX Qty: 21 0RF Rx Instructions: orally per package directions Continued hydrocodone-acetaminophen 5-325 mg tablet 1 tab PO Q4H PRN (Reason: pain) 7 Days Qty: 10 0RF No Action cyclobenzaprine 10 mg tablet 10 mg PO TID PRN (Reason: muscle spasm) Qty: 30 0RF gabapentin 300 mg capsule 300 mg PO TID Qty: 90 2RF prednisone 20 mg tablet 20 mg PO TID Rx Instructions: 1 p.o. 3 times daily x3 days, 1 p.o. twice daily x2 days, 1 p.o. daily x2 days colchicine [Colcrys] 0.6 mg tablet See Rx Instructions .ROUTE .COMPLEX Qty: 30 1RF Rx Instructions: 2 pills at once, then another pill 1 hour later. Repeat the same dosing at the earliest signs of flare-up prednisone 10 mg tablet 10 mg PO DAILY 5 Days Qty: 5 0RF diclofenac sodium 75 mg tablet,delayed release (DR/EC) 75 mg PO Q12H PRN (Reason: pain) Qty: 20 0RF hydrochlorothiazide 12.5 mg tablet 12.5 mg PO 1XD Discharge Orders: Discharge ED (Routine); Ordered 01/13/23 Ordered By: Mohan Bashir Other Ambulatory Orders: DME: Miscellaneous (Order) Location: None Selected Ordered By: Mohan Bashir Referrals: Lynn Iqbal MD [Primary Care Provider] - Patient Instructions: Swollen Knee Joint (ED), Hinged Knee Brace (ED), Meniscus Tear (ED), Opioid Safety, Pain Management Activity Restrictions/Additional Instructions: Present prescription for sports hinged knee brace to [facility] across the street from the hospital. They will help achieve for brace for support. Crutch for weightbearing until you tolerate weightbearing without crutches. Case management will contact you this week regarding an orthopedic clinic referral and appointment. Medications as directed. Ice often. Limitations as below. 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
[2023-01-13] MEDS: ketorolac 10 mg Tablet PO (04:00)
[2023-01-13] MEDS: oxyCODONE-APAP 5-325 mg Tablet 2 TAB PO (04:00)
[2023-01-13 04:01] VITALS: BP 144/88; PULSE 92; RESP 16; O2SAT 98
== END 2023-01-13 04:27 | disposition home or self-care (01) ==
PROVIDERS: Emergency Provider Emergency Medicine; PCP Family Medicine
DX: M25.462 Effusion, left knee (principal); M23.92 Unspecified internal derangement of left knee
CPT/HCPCS: 73562; 99283; E0114; J8540

== ENCOUNTER → 2023-01-14 12:45 | Outpatient (BNVA) | payer OTHER, SELFPAY | PROVIDERS: PCP Family Medicine; Visit Provider Orthopaedic Surgery | DX: M25.462 Effusion, left knee (principal) | CPT/HCPCS: 99203 ==

== ENCOUNTER → 2023-01-21 12:46 | Outpatient (BNVA) | payer OTHER, SELFPAY | PROVIDERS: PCP Family Medicine; Visit Provider Orthopaedic Surgery | DX: Z47.89 Encounter for other orthopedic aftercare (principal) | CPT/HCPCS: 99024 ==

== ENCOUNTER → 2023-02-25 13:42 | Outpatient (BNVA) | payer OTHER, SELFPAY | PROVIDERS: PCP Family Medicine; Visit Provider Physician Assistant | DX: Z98.890 Other specified postprocedural states (principal) | CPT/HCPCS: 99024 ==

== ENCOUNTER → 2023-05-27 10:50 | Outpatient (BNVA) | payer OTHER, SELFPAY | PROVIDERS: PCP Family Medicine; Visit Provider Nurse Practitioner Family | DX: M10.9 Gout, unspecified (principal); M79.601 Pain in right arm; I16.0 Hypertensive urgency | CPT/HCPCS: 80053; 84550; 85025 ==

== ENCOUNTER 2023-07-04 10:24 | Emergency (ER) | payer OTHER, SELFPAY ==
[2023-07-04 10:27] VITALS: BP 153/107; PULSE 100; RESP 18; TEMP 36.6; O2SAT 97
--- NOTE | 2023-07-04 10:29 | ED_ITS ---
HPI - Back Pain/Injury General: Chief Complaint: Back Pain/Injury Stated Complaint: back pain, previous back surgery Time Seen by Provider: 07/04/23 10:27 Source: patient Mode of arrival: ambulatory Limitations: no limitations History of Present Illness: Patient is a 47-year-old male who presents to ED today with a complaint of mid back pain over the past 5 days or so. Patient states he initially woke up with pain in between his thoracic spine and left scapula which he states he has had before secondary to ribs being out of place . Patient states his pain normally subsides on its own but was concerned today when it did not. He states he is now having pain to the left and right of his thoracic spine. Pain seems to be worse with movement, coughing, sneezing. Patient has not found any alleviating factors to his discomfort. He states pain does not seem to radiate into his chest or abdomen. He has not noticed any numbness, tingling, loss of sensation to his arms or legs. Previous history of lumbar surgery by Dr. Mayfield earlier this year. MD elicited complaint: back pain Pertinent past history: prior back pain Onset (ago): day(s) Timing: constant Severity: severe Similar Symptoms Previously: Yes Quality: aching and spasming Location: right upper back and left upper back Radiation: none Exacerbating factors: movement, coughing/sneezing and lifting Relieving factors: none Associated symptoms: Reports no associated symptoms; Deny abdominal pain, chills, fatigue, fever(s), hematuria or syncope Treatments prior to arrival: NSAIDS and acetaminophen Work related injury: No Review of Systems Const: Denies: fever(s), chills, body aches, fatigue or malaise Card: Denies: chest pain, lightheadedness, syncope or pre-syncope Resp: Denies: dyspnea GI: Denies: abdominal pain : Denies: flank pain, difficulty urinating or hematuria Musc: Reports: back pain; Denies: neck pain, extremity pain, extremity swelling, joint pain or joint swelling Skin/Breast: Denies: rash Neuro: Denies: numbness in extremities, weakness in extremities, sensory changes or dizziness PFS ED PFSH: Medical History Back pain Cervical disc disease Surgical History H/O cervical discectomy Social History Smoking and tobacco/nicotine status: never used tobacco/nicotine Physical Exam Const: COMMON NORMALS: no acute distress, patient oriented x3, no limitations and alert GENERAL APPEARANCE: cooperative NUTRITIONAL APPEARANCE: overweight ORIENTATION/CONSCIOUSNESS: Yes awake, Yes oriented to person, Yes oriented to place and Yes oriented to time Neck/C-Spine: COMMON NORMALS: full ROM, no lymphadenopathy and no meningeal signs GENERAL: Yes normal visual inspection Chest: COMMONS NORMALS: normal inspection of the chest and normal palpation of entire chest wall Resp: COMMON NORMALS: normal respiratory effort and clear to auscultation bilaterally AUSCULTATION: clear to auscultation bilaterally Cardio: COMMON NORMALS: regular rate and regular rhythm RATE: regular rate RHYTHM: regular rhythm GI: COMMON NORMALS: Normal to inspection, nondistended, normoactive bowel sounds present, Soft to palpation and non-tender PALPATION: Yes Soft to palpation : COMMON NORMALS: Yes no CVA tenderness BLADDER/KIDNEY EXAM: Yes no CVA tenderness Back/Pelvis: COMMON NORMALS: no CVA tenderness, thoracic and lumbar spine normal to inspection and no thoracic nor lumbar tenderness THORACIC SPINE/UPPER BACK: Yes ROM limited, No thoracic spinal tenderness, Yes paraspinal muscle tenderness and No paraspinal muscle spasm LUMBAR SPINE/LOWER BACK: No lumbar spinal tenderness, No paraspinal muscle tenderness and No paraspinal muscle spasm PELVIS: Yes buttocks normal SACROILIAC JOINTS: Yes SI joints normal SACRUM: no tenderness COCCYX: no tenderness BACK IMAGE (MALE): 1. 2. palpation reproduces pain; no pain to midline; pain also worse with back rotation and shoulder movements Extremity: COMMON NORMALS: normal to inspection and full ROM GENERAL: Yes normal exam except as noted Neuro: COMMON NORMALS: patient oriented x3, moves all extremities, no focal motor deficits and no sensory deficits noted SENSORIUM/ORIENTATION: Yes alert, Yes oriented to person, Yes oriented to place and Yes oriented to time MENINGEAL SIGNS: Yes no meningeal signs Skin: COMMON NORMALS: no rashes or lesions noted GENERAL SKIN EXAM: no rashes or lesions noted Course Vital Signs: Vital signs: Vital Signs Temperature 97.8 F 07/04/23 13:38 Pulse Rate 82 07/04/23 13:38 Respiratory Rate 20 H 07/04/23 13:38 Blood Pressure 164/121 07/04/23 13:38 Pulse Oximetry 93 07/04/23 13:38 Oxygen Delivery Me thod Room Air 07/04/23 10:32 MDM - Back Pain/Injury Medical Decision Making Patient feeling better after medications given here. Currently rating pain at a 3/10. He has reproducible bilateral thoracic paraspinal muscle tenderness. No red flags on history (no acute onset, ripping/tearing sensation, no chest pain, denies SOB) or physical exam (normal vitals (apart from HTN, no pulse deficit, cardiac murmur, signs of ischemia) to suggest a more ominous etiology for his back pain. CXR and EKG is normal. He reports chronic hypertension usually c ontrolled at home. Recommend keeping log as PCP may need to adjust his HCTZ as blood pressure has been high here. Labs Radiology Impressions Chest X-Ray 07/04/23 12:21 IMPRESSION: Minor subsegmental atelectasis in the left base. All radiology interpretation(s) finalized by discharge Discharge Plan Discharge Patient Disposition: Home Clinical Impression: Strain of muscle and tendon of back wall of thorax, initial encounter Condition: Stable Prescriptions: New methocarbamol 500 mg tablet 1,000 mg PO Q8H Qty: 30 0RF hydrocodone-acetaminophen 5-325 mg tablet 1 tab PO Q6H PRN (Reason: pain) Qty: 14 0RF Medrol (Keltno) 4 mg tablets,dose pack See Rx Instructions .ROUTE .COMPLEX Qty: 21 0RF Rx Instructions: orally per package directions Discontinued prednisone 10 mg tablet See Rx Instructions PO .COMPLEX Qty: 26 0RF Rx Instructions: orally; 40mg (4 tabs) for day 1-2; 30mg (3 tabs) day 3-5; 20mg (2 tabs) day 6-8, 10mg (1 tab) day 9-10; 5mg (0.5 tab) day 11-12 No Action diclofenac potassium 50 mg tablet 50 mg PO TID PRN (Reason: pain) Qty: 30 0RF hydrochlorothiazide 12.5 mg tablet 12.5 mg PO DAILY allopurinol 100 mg tablet 200 mg PO DAILY Discharge Orders: Discharge ED (Routine); Ordered 07/04/23 Ordered By: Erica Townsend Referrals: Lynn Iqbal MD [Primary Care Provider] - Patient Instructions: Thoracic Back Strain (ED), Opioid Safety, Pain Management Activity Restrictions/Additional Instructions: As we discussed please follow-up with [facility] for re-evaluation especially if symptoms do not seem to be improving. He may return to the emergency department for worsening or severe pain especially pain radiating into your chest or abdomen, any weakness or loss of sensation to the upper extremities, dizziness/lightheadedness/passing out episodes, any strokelike symptoms, shortness of breath or difficulty breathing, or any other concerns you may have. I hope you begin to feel better soon. Coding Level of Care Code ED Public Relations Sales Marketing for Miladys Lockwood
[2023-07-04 10:32] VITALS: BP 162/109; PULSE 98; RESP 20; TEMP 36.6; O2SAT 98
[2023-07-04] MEDS: orphenadrine 30 mg/mL Inj 2 mL 60 MG IVP (11:30)
[2023-07-04] MEDS: dexamethasone 10 mg/mL INJ IVP (11:31)
[2023-07-04] MEDS: ketorolac 30 mg/mL INJ IVP (11:33)
[2023-07-04] MEDS: HYDROmorphone 1 mg/mL INJ 1 mL IVP (12:13)
--- NOTE | 2023-07-04 12:21 | XRR_ITS ---
PROCEDURE INFORMATION: Exam: XR Chest Exam date and time: 07/04/2023 12:38 PM Age: 47 years old Clinical indication: Other: Mid back pain TECHNIQUE: Imaging protocol: Radiologic exam of the chest. Views: 1 view. COMPARISON: CR XR chest 1V [id number] 03/21/2018 4:50 AM FINDINGS: Lungs: Minor subsegmental atelectasis in the left base. No infiltrate. Pleural spaces: Unremarkable. No pleural effusion. No pneumothorax. Heart/Mediastinum: Unremarkable. No cardiomegaly. Bones/joints: Unremarkable. XR/XR chest 1V portable [id number] IMPRESSION: Minor subsegmental atelectasis in the left base.
[2023-07-04 12:32] VITALS: BP 164/121; PULSE 82; RESP 20; O2SAT 93
--- NOTE | 2023-07-04 12:59 | ECG_ITS ---
[facility] Test Date: 2023-07-04 Pat Name: Marc Skinner Department: Room: Gender: Male Neurosurgical Nurse Practitioner: : 1975 Requested By: Nba Núñez Order Number: [id number] Uyen MD: Chapo Espinosa M.D. Measurements Intervals [place] Rate: 82 P: 39 NV: 158 QRS: 5 QRSD: 102 T: 29 QT: 382 QTc: 447 Interpretive Statements SINUS RHYTHM No previous ECG available for comparison Electronically Signed On 07-04-2023 19:37:27 CDT by Chapo Espinosa M.D. [id number]
[2023-07-04 13:38] VITALS: BP 164/121; PULSE 82; RESP 20; TEMP 36.6; O2SAT 93
== END 2023-07-04 13:44 | disposition home or self-care (01) ==
PROVIDERS: Emergency Provider Physician Assistant; PCP Family Medicine
DX: S29.012A Strain of muscle and tendon of back wall of thorax, initial encounter (principal); X58.XXXA Exposure to other specified factors, initial encounter
CPT/HCPCS: 71045; 93005; 96374; 96375; 99284; J1100; J1170; J1885; J2360

== ENCOUNTER 2023-09-25 15:08 | Outpatient (CLI) | payer OTHER, SELFPAY ==
--- NOTE | 2023-09-25 15:13 | US_ITS ---
WS: [id number] TESTICULAR ULTRASOUND HISTORY: L TESTICLE SWELLING COMPARISON: None available. TECHNIQUE: Real-time and color Doppler imaging or utilized to perform a testicular ultrasound. Right testicle: 4.6 cm x 3.3 cm x 2.9 cm. Normal size and echogenicity. No mass or torsion. Normal color Doppler is present throughout. Systolic and diastolic velocities are both present. No significant hydrocele. Right epididymis: Simple cyst associated with the RIGHT epididymis measures 1.2 x 1.0 x 1.6 cm consis tent with a spermatocele. Left testicle: 4.3 cm x 3.8 cm x 3.0 cm. Normal size and echogenicity. No mass or torsion. Normal color Doppler is present throughout. Systolic and diastolic velocities are both present. No significant hydrocele. Left epididymis: There is a large complex cyst with low-level echoes and septations and centered in t he LEFT scrotum. Favor this is probably a large spermatocele measuring 6.2 x 3.3 x 5.1 cm. There is n o increased vascularity. IMPRESSION: 1. No testicular mass or torsion. 2. Large loculated cystic mass with low-level echoes in the LEFT scrotum. Favor this is probably a v lux large spermatocele measuring 6.2 x 3.3 x 5.1 cm which could be causing slight mass effect upon th e testicle. 3. No orchitis. 4. Small RIGHT epididymal head spermatocele.
== END 2023-09-25 15:09 | disposition home or self-care (01) ==
LOC: RAD 15:08
PROVIDERS: PCP Family Medicine; Visit Provider Family Medicine
DX: N50.89 Other specified disorders of the male genital organs (principal); L72.9 Follicular cyst of the skin and subcutaneous tissue, unspecified; N43.40 Spermatocele of epididymis, unspecified
CPT/HCPCS: 76870

== ENCOUNTER → 2023-10-21 13:33 | Outpatient (BNVA) | payer OTHER, SELFPAY | PROVIDERS: PCP Family Medicine; Referring Provider Family Medicine; Visit Provider Surgery | DX: Z12.11 Encounter for screening for malignant neoplasm of colon (principal) | CPT/HCPCS: 99203 ==

== ENCOUNTER 2024-02-10 06:04 | Day surgery (SDC) | payer OTHER, SELFPAY ==
--- NOTE | 2024-02-10 06:03 | W.PM.OPSFHP ---
Same Day Surgery H&P Indication for Procedure/HPI DATE OF PROCEDURE: February 10, 2024 CHIEF COMPLAINT/INDICATIONFOR SURGICAL PROCEDURE: encounter for screening colonoscopy PREOP DIAGNOSIS: encounter for screening colonoscopy PLANNED PROCEDURE: Operation Date: 02/10/24 07:00 Proposed Procedures p Colonoscopy 63915, G0121, Z12.11(Not Applicable) - Marc Sarkar MD Medications/Allergies* Home Medications Medication Instructions Recorded Confirmed Type allopurinol 100 mg tablet 200 mg PO DAILY 07/04/23 02/05/24 History hydrochlorothiazide 12.5 mg tablet 12.5 mg PO DAILY 07/04/23 02/05/24 History Allergies/Adverse Reactions Allergy/AdvReac Type Severity Reaction Status Date / Time No Known Allergies Allergy Verified 10/21/23 13:34 Pertinent History/Comorbid Conditions* Medical History (Updated 07/12/23 @ 00:03 by TOMÁS Kingston) Cervical disc disease Back pain Surgical History (Updated 02/25/23 @ 14:27 by Mian Aly PA-C) H/O cervical discectomy Social History Smoking and tobacco/nicotine status: never used tobacco/nicotine Alcohol intake: current Alcohol intake frequency: holidays/special occasions only Substance/Drug Use: never Pertinent Exam Findings alert, oriented x 3, clear to auscultation bilaterally and regular rate & rhythm Recommendations Surgery/Procedure today Coding Level of Care Code Acute Code for Miladys Lockwood
[2024-02-10 06:17] VITALS: BP 159/110; PULSE 54; RESP 18; TEMP 36.1; O2SAT 98; BMI 36.9
[2024-02-10] MEDS: sodium chloride 0.9% 1,000 ML 30 ML IV (06:31)
--- NOTE | 2024-02-10 06:50 | ANES.PREANE2 ---
Pre-Anesthetic Assessment Height/Weight: Height 1.8 m Weight 120.202 kg Temp Pulse Resp BP Pulse Ox O2 Del Method 97.0 F L 54 L 18 159/110 98 Room Air 02/10/24 06:17 02/10/24 06:17 02/10/24 06:17 02/10/24 06:17 02/10/24 06:17 02/10/24 06:17 Preop Diagnosis: encounter for screening colonoscopy Operation Date: 02/10/24 07:00 Proposed Procedures p Colonoscopy 42662, G0121, Z12.11(Not Applicable) - Marc Sarkar MD Familial anesthetic complications: awareness during surgery Was Beta Madhu taken within 24 hours: N/A Was Clonidine taken within 24 hours: N/A Last intake: Intake Last Liquid Date 02/09/24 Last Liquid Time 22:00 Last Solid Date 02/08/24 Last Solid Time 17:00 Social No alcohol and No tobacco Exam alert, oriented x 3, clear to auscultation bilaterally and regular rate & rhythm Airway Submandibular: within normal limits Cervical ROM: within normal limits Mallampati: Class II Dentition: full Pulmonary None reported CV/HEM Hypertension None reported Hepatic None reported GI None reported Metabolic None reported Musc/skel Lower Back Pain Neuropsych None reported Anesthetic Plan ASA status: 2 Anesthesia: MAC Risk of > 500 ml blood loss (7ml/kg in children): No Medications/Allergies Home Medications Medication Instructions Recorded Confirmed Last Taken Type allopurinol 100 mg tablet 200 mg PO DAILY 07/04/23 02/10/24 Unknown History hydrochlorothiazide 12.5 mg tablet 12.5 mg PO DAILY 07/04/23 02/10/24 02/10/24 History colchicine 0.6 mg tablet (Colcrys) See Rx Instructions .Route 07/28/23 02/10/24 Unknown Rx .COMPLEX #30 tabs naproxen 500 mg tablet (Naprosyn) 500 mg PO BID 7 days #90 tabs 07/28/23 02/10/24 02/09/24 Rx Allergies Allergy/AdvReac Type Severity Reaction Status Date / Time No Known Allergies Allergy Verified 02/10/24 06:15 Current Medications Generic Name Dose Route Start Last Admin Trade Name Freq PRN Reason Stop Dose Admin Sodium Chloride 1,000 mls @ 30 mls/hr 02/10/24 06:00 02/10/24 06:31 Sodium Chloride 0.9% IV 30 mls/hr .Q24H NAHEED Administration PFSH Anesthesia Medical History Cervical disc disease Back pain Surgical History H/O cervical discectomy Social History (Updated 02/05/24 @ 12:37 by Vickie Leo RN) Smoking and tobacco/nicotine status: never used tobacco/nicotine Alcohol intake: current Alcohol intake frequency: holidays/special occasions only Substance/Drug Use: never Data Anesthesia Cardiac Studies: No Data to Display
[2024-02-10 07:24] VITALS: BP 106/74; PULSE 63; RESP 12; TEMP 36.3; O2SAT 93
[2024-02-10 07:35] VITALS: BP 118/74; PULSE 68; RESP 16; O2SAT 98
--- NOTE | 2024-02-10 14:04 | ANE.PACU2 ---
Inpatient post-anesthesia follow up: Airway intact: Yes Vital signs: Temperature 97.4 F Pulse Rate 68 Respiratory Rate 16 Blood Pressure 118/74 Pulse Oximetry 98 Oxygen Delivery Me thod Room Air Oxygen Flow Rate Fraction of Inspir ed Oxygen Hydration adequate: Yes Nausea and vomiting: No Pain level: 2 Mental status: Baseline
== END 2024-02-10 07:52 | disposition home or self-care (01) ==
PROVIDERS: PCP Family Medicine; Visit Provider Surgery
PROC: 0DJD8ZZ Inspection of Lower Intestinal Tract, Via Natural or Artificial Opening Endoscopic (ICD-10-PCS; CPT 45378; principal; 2024-02-10 07:00)
DX: Z12.11 Encounter for screening for malignant neoplasm of colon (principal); I10 Essential (primary) hypertension
CPT/HCPCS: 45378; J2704; J7030

== ENCOUNTER → 2024-11-25 08:25 | Outpatient (BNVA) | payer OTHER, SELFPAY | PROVIDERS: PCP Family Medicine; Visit Provider Podiatrist Foot & Ankle Surgery | DX: M25.571 Pain in right ankle and joints of right foot (principal); M79.671 Pain in right foot; M19.071 Primary osteoarthritis, right ankle and foot | CPT/HCPCS: 73610; 73630; 99203 ==

== ENCOUNTER 2025-02-17 21:29 | Inpatient (IN) | payer OTHER, SELFPAY ==
[2025-02-17 21:50] VITALS: BP 151/94; PULSE 98; RESP 14; TEMP 37.5; O2SAT 96; BMI 34.5
--- NOTE | 2025-02-17 23:47 | XRR_ITS ---
PROCEDURE INFORMATION: Exam: XR Right Elbow Exam date and time: 02/17/2025 11:53 PM Age: 49 years old Clinical indication: Elbow; Right; Old FX. Has swelling flare ups. Very painful when moved; Additional info: Swelling, decreased rom TECHNIQUE: Imaging protocol: Radiologic exam of the right elbow. Views: 3 or more views. COMPARISON: No relevant prior studies available. FINDINGS: Bones/joints: Very subtle irregularity of the tip of the olecranon on oblique view. If a tiny enthesophyte was present at this location, it may be fragmented. Distal humerus and imaged proximal radius appear normal. radiocapitellar alignment appears normal. Soft tissues: Soft tissue swelling dorsally about the elbow. XR/XR elbow RT min 3V* [id number] IMPRESSION: Significant dorsal soft tissue swelling with very subtle osseous fragmentation at the tip of the olecranon. Injury to a small enthesophyte at this location can not be entirely excluded.
[2025-02-18] VITALS (13 sets, daily range): BP systolic 103–152; BP diastolic 70–100; PULSE 77–94; RESP 16–17; TEMP 37.1–37.3; O2SAT 94–100
--- NOTE | 2025-02-18 00:14 | W.ED.EXTPRO ---
HPI - Extremity Problem General: Chief complaint: Extremity Problem,Nontraumatic Stated complaint: right elbow swollen injured Time Seen by Provider: 02/17/25 23:30 Source: patient Mode of arrival: ambulatory Limitations: no limitations History of Present Illness: 49yo male presents with right elbow swelling and decreased range of motion. Patient states that his elbow pain started Friday and has continued to worsen. States that he has had fluid buildup in the past. States that this feels different and is worsening faster. Patient reports that typically he is able to move his arm with no difficulty even with the swelling, but he has significant pain with attempts of moving his right elbow. Patient is right-hand dominant. He denies fever, chills, body aches, feeling ill. Associated symptoms: Deny chest pain or fever(s) Related Data Home Medications ?Medication ?Instructions ?Recorded ?Confirmed allopurinol 100 mg tablet 200 mg PO DAILY 07/04/23 08/11/24 Previous Rx's ?Medication ?Instructions ?Recorded naproxen 500 mg tablet (Naprosyn) 500 mg PO BID 7 days #90 tabs 07/28/23 colchicine 0.6 mg tablet (Colcrys) See Rx Instructions .Route 08/11/24 .COMPLEX #30 tabs Allergies Allergy/AdvReac Type Severity Reaction Status Date / Time No Known Allergies Allergy Verified 11/25/24 08:34 Review of Systems Const: Denies: fever(s), chills or body aches Card: Denies: chest pain Resp: Denies: dyspnea GI: Denies: nausea or vomiting Musc: Reports: extremity pain (Right elbow) and extremity swelling (Right elbow) Skin/Breast: Reports: erythema (Right elbow) [facility] PFSH: Medical History Cervical disc disease Back pain Surgical History H/O cervical discectomy Social History Smoking and tobacco/nicotine status: never used tobacco/nicotine Alcohol intake: current Alcohol intake frequency: holidays/special occasions only Substance/Drug Use: never Physical Exam Const: COMMON NORMALS: no acute distress, patient oriented x3 and alert GENERAL APPEARANCE: cooperative ORIENTATION/CONSCIOUSNESS: Yes awake OTHER: Patient is ambulatory to the exam room unassisted. He is sitting upright in a bedside chair in no acute distress. He is able to give history with no difficulty. He is interactive with exam appropriately. No family is at bedside HENMT: COMMON NORMALS: normocephalic and atraumatic HEAD & SCALP: normocephalic and atraumatic Chest: CHEST: Yes Symmetrical chest wall rise Resp: COMMON NORMALS: normal respiratory effort EFFORT & INSPECTION: Yes able to speak in complete sentences Extremity: RIGHT UPPER EXTREMITY: Yes elbow joint (Swelling and erythema to the posterior aspect of the elbow) Right elbow: Yes inspection, Yes palpation (Tenderness to the posterior elbow area) and Yes ROM (Decreased flexion and extension due to pain) OTHER: Full range of motion of the right hand and fingers. Sensation intact distally. Radial pulse 2+, capillary refill less than 3 seconds Neuro: COMMON NORMALS: patient oriented x3 SENSORIUM/ORIENTATION: Yes alert Psych: COMMON NORMALS: cooperative Course Vital Signs: Vital signs: Vital Signs Temperature 99.5 F 02/17/25 21:50 Pulse Rate 98 02/17/25 21:50 Respiratory Rate 14 02/17/25 21:50 Blood Pressure 151/94 02/17/25 21:50 Pulse Oximetry 96 02/17/25 21:50 MDM - Extremity (Nontraumatic) Medical Decision Making 49yo male presents with right elbow swelling and decreased range of motion. Patient states that his elbow pain started Friday and has continued to worsen. Patient does report a remote injury several years back while in the . He now has significant difficulty with flexion and extension of the elbow. Denies fever, chills, bodies, feeling ill. Patient is nontoxic in appearance. Vital signs are stable. Differential diagnoses include but are not limited to: Septic joint, gout flare, olecranon bursitis Leukocytosis with a white blood cell count of 13.74. CRP is elevated at 63.8. ESR is in the normal range at 10. CMP with no significant abnormalities. X-ray of the elbow does reveal significant dorsal soft tissue swelling with a subtle osseous fragmentation. This is likely from patient's previous injury while in the . Discussed all findings with patient. Discussed possibility of septic joint versus infected bursitis and the need for MRI of the elbow. Patient is agreeable to staying in the emergency department and waiting for MRI in the morning. Patient did receive hydrocodone as well as ondansetron and MRI has been ordered. Dr. Sweeney to assume care due to change of shift. Medical Records I reviewed the patient's medical records. Lab Data I reviewed the patient's lab results. 02/18/25 00:04 02/18/25 00:04 Radiology Impressions Elbow X-Ray 02/17/25 23:47 IMPRESSION: Significant dorsal soft tissue swelling with very subtle osseous fragmentation at the tip of the olecranon. Injury to a small enthesophyte at this location can not be entirely excluded. Laboratory Results WBC 13.74 10^3/uL (3.29-11.43) H 02/18/25 00:04 RBC 4.31 10^6/uL (3.85-5.65) 02/18/25 00:04 Hgb 14.10 g/dL (11.27-16.99) 02/18/25 00:04 Hct 41.5 % (37-53) 02/18/25 00:04 MCV 96.3 fl (82-101) 02/18/25 00:04 MCH 32.7 pg (27-33) 02/18/25 00:04 MCHC 34.0 g/dL (30-55) 02/18/25 00:04 RDW 13.1 % (12.1-15.1) 02/18/25 00:04 Plt Count 233 10^3/cmm (157-399) 02/18/25 00:04 MPV 9.5 fL (7.4-10.4) 02/18/25 00:04 Neut % (Auto) 76.6 % 02/18/25 00:04 Lymph % (Auto) 14.2 % 02/18/25 00:04 [place] % (Auto) 7.5 % 02/18/25 00:04 Eos % (Auto) 0.8 % 02/18/25 00:04 Baso % (Auto) 0.4 % 02/18/25 00:04 Neut # (Auto) 10.52 10^3/uL (1.8-7.7) H 02/18/25 00:04 Lymph # (Auto) 2.0 10^3/uL (0.8-4.8) 02/18/25 00:04 [place] # (Auto) 1.0 10^3/uL (0.2-0.9) H 02/18/25 00:04 Eos # (Auto) 0.1 10^3/uL (0.0-0.8) 02/18/25 00:04 Baso # (Auto) 0.1 10^3/uL (0.0-0.1) 02/18/25 00:04 Nucleated RBC % (auto) 0 % 02/18/25 00:04 Nucleated RBCs # 0.0 /100WBC 02/18/25 00:04 ESR 10 mm/hr (0-10) 02/18/25 00:04 Sodium 134 mmol/L (136-145) L 02/18/25 00:04 Potassium 3.8 mmol/L (3.5-5.1) 02/18/25 00:04 Chloride 97 mmol/L (98-107) L 02/18/25 00:04 Carbon Dioxide 24 mmol/L (22-29) 02/18/25 00:04 Anion Gap 16.8 (5-19) 02/18/25 00:04 BUN 9 mg/dL (6-20) 02/18/25 00:04 Creatinine 0.7 mg/dL (0.7-1.2) 02/18/25 00:04 GFR Calculation 120.4 mL/min (90-130) 02/18/25 00:04 Glucose 119 mg/dL (65-115) H 02/18/25 00:04 Calculated Osmolality 278 mOsm/kg (285-295) L 02/18/25 00:04 Calcium 9.6 mg/dL (8.5-10.5) 02/18/25 00:04 Total Bilirubin 1.0 mg/dL (0.15-1.2) 02/18/25 00:04 AST 26 U/L (0-40) 02/18/25 00:04 ALT 30 U/L (0-41) 02/18/25 00:04 Alkaline Phosphatase 85 U/L (40-130) 02/18/25 00:04 C-Reactive Protein 63.8 mg/L (0.0-4.9) H 02/18/25 00:04 Total Protein 8.2 g/dL (6.6-8.7) 02/18/25 00:04 Albumin 4.3 g/dL (3.5-5.2) 02/18/25 00:04 Globulin 3.9 g/dL (1.3-4.6) 02/18/25 00:04 All radiology interpretation(s) finalized by discharge Discharge Plan Discharge Condition: Stable Prescriptions: No Action naproxen [Naprosyn] 500 mg tablet 500 mg PO BID 7 Days Qty: 90 1RF colchicine [Colcrys] 0.6 mg tablet See Rx Instructions .ROUTE .COMPLEX Qty: 30 1RF Rx Instructions: 2 pills at once, then another pill 1 hour later. 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
[2025-02-18 00:21] LABS: Erythrocyte Sedimentation Rate 10 mm/hr (0-10)
[2025-02-18 00:23] LABS: Basophils # 0.1 10^3/uL (0.0-0.1); Basophils % 0.4 %; Eosinophils # 0.1 10^3/uL (0.0-0.8); Eosinophils % 0.8 %; Hematocrit 41.5 % (37-53); Lymphocytes % 14.2 %; Mean Corpuscular Hemoglobin 32.7 pg (27-33); Mean Corpuscular Volume 96.3 fl (82-101); Mean Platelet Volume 9.5 fL (7.4-10.4); Monocytes % 7.5 %; Neutrophils # 10.52 10^3/uL (1.8-7.7); Neutrophils % 76.6 %; Nucleated Red Blood Cells % 0 %; Platelet Count 233 10^3/cmm (157-399); Red Blood Count 4.31 10^6/uL (3.85-5.65); Red Cell Distribution Width 13.1 % (12.1-15.1); White Blood Count 13.74 10^3/uL (3.29-11.43)
[2025-02-18 00:34] LABS: Alanine Aminotransferase 30 U/L (0-41); Albumin Level 4.3 g/dL (3.5-5.2); Alkaline Phosphatase 85 U/L (40-130); Anion Gap 16.8 (5-19); Aspartate Amino Transferase 26 U/L (0-40); Blood Urea Nitrogen 9 mg/dL (6-20); C Reactive Protein 63.8 mg/L (0.0-4.9); Calcium 9.6 mg/dL (8.5-10.5); Carbon Dioxide 24 mmol/L (22-29); Chloride 97 mmol/L (98-107); Globulin 3.9 g/dL (1.3-4.6); Glomerular Filtration Rate 120.4 mL/min (90-130); Glucose 119 mg/dL (65-115); Osmolality Calculated 278 mOsm/kg (285-295); Potassium 3.8 mmol/L (3.5-5.1); Sodium 134 mmol/L (136-145); Total Protein 8.2 g/dL (6.6-8.7)
--- NOTE | 2025-02-18 01:24 | MR_ITS ---
WS: [id number] MRI RIGHT ELBOW WITH AND WITHOUT CONTRAST. COMPARISON: Radiograph 02/17/2025 Multiplanar, multisequence imaging is performed with and without contrast. MultiHance 20 mL. Study is compromised by motion artifact and additional artifacts in difficulty positioning the patient. There is a large joint effusion. Joint effusion surrounds the humeral condyles. No definite enhancement on the post contrast imaging although the study is compromised. There is soft tissue edema and cellulitis along the posterior elbow. There is marked soft tissue edema extending over a length of at least 6.2 cm at the level of the olecranon. No marrow edema is identified. Mild degenerative changes in the medial and lateral joint spaces. Biceps tendon is intact. Brachioradialis and the brachialis tendons are appropriate. The common flexor and extensor tendons are very limited due to artifact. No full-thickness tears are identified. Small te ars involving the ulnar and radial collateral ligaments would be difficult to identify. MR/MR elbow RT wo/w con [id number] IMPRESSION: 1. Large elbow joint effusion without enhancement. 2. Soft tissue enhancement along the posterior olecranon consistent with cellu litis. Olecranon bursitis may also be present. There is no well-formed fluid co llection. 3. . Limited MRI evaluation of the elbow due artifact and difficulty positioni ng the patient. 4. No marrow edema or abnormal enhancement.
[2025-02-18] MEDS: ondansetron hcl ODT 4 mg Tab PO (01:28)
[2025-02-18] MEDS: HYDROcodone-acetaminophen 7.5-325 mg Tablet 1 TAB PO (01:28)
[2025-02-18] MEDS: LORazepam 2 mg Tablet PO (07:38)
[2025-02-18] MEDS: HYDROmorphone 0.5 MG/0.5 ML INJ IVP ×2 (09:17→13:09)
[2025-02-18] MEDS: linezolid premix 600 MG/300 ML PREMIX 300 MG IV (09:20)
--- NOTE | 2025-02-18 11:15 | PM.HP ---
Providers/Chief Complaint Primary Care Provider: Lynn Iqbal MD Chief Complaint: right elbow swollen injured History of Present Illness Marc Skinner is a 49 year old male with a history of cervical disk disease, chronic back pain, gout, hypertension, and prior right elbow injury presenting to the emergency department for right elbow swelling and decreased range of motion that began on Friday and has progressively worsened. The patient reports a history of intermittent elbow swelling and fluid accumulation in the past, with previous episodes resolving with anti-inflammatories and ice. This episode is different, with persistent swelling, redness, and pain radiating up to the trapezius and pectoral region. The patient has not had significant relief with ice during this episode and notes that swelling worsened after icing. He reports difficulty sleeping due to pain, with only about three hours of sleep in the past 54 hours. He denies recent fevers, but describes feeling cold and possibly febrile the previous day. He reports mild nausea last night attributed to pain, but denies vomiting, diarrhea, cough, sore throat, hematuria, or GI bleeding. The patient has a remote history of right elbow injury in the , and has had prior episodes of gout affecting the toes, right ankle (with two surgeries), and knee. He takes allopurinol and colchicine as needed for gout. He denies a history of diabetes, rheumatoid arthritis, or psoriasis. Blood glucose readings were 120 yesterday and 119 today. He reports chronic back pain due to degenerative disc disease and has had multiple surgeries (see surgical history). Review of Systems Const: Denies: fever(s), chills, body aches or malaise ENMT: Denies: throat pain Card: Denies: chest pain, edema, pre-syncope or dyspnea on exertion Resp: Denies: dyspnea, productive cough, change in phlegm color or hemoptysis GI: Denies: abdominal pain, nausea, vomiting, diarrhea, constipation, hematochezia or melena : Denies: flank pain, difficulty urinating, urinary frequency or hematuria Musc: Reports: joint pain, joint swelling, joint redness and joint warmth; Denies: back pain Skin/Breast: Denies: rash or new lesions Neuro: Denies: headache(s) or confusion Medications/Allergies Home Medications ?Medication ?Instructions ?Recorded ?Confirmed ?Last Taken ?Type allopurinol 100 mg tablet 200 mg PO DAILY 07/04/23 02/18/25 02/16/25 History naproxen 500 mg tablet (Naprosyn) 500 mg PO BID 7 days #90 tabs 07/28/23 02/18/25 02/17/25 Rx colchicine 0.6 mg tablet (Colcrys) See Rx Instructions .Route 08/11/24 02/18/25 02/17/25 Rx .COMPLEX #30 tabs amlodipine 10 mg tablet 10 mg PO DAILY 02/18/25 02/18/25 02/17/25 History Allergies Allergy/AdvReac Type Severity Reaction Status Date / Time No Known Allergies Allergy Verified 11/25/24 08:34 PFSH Acute PFSH: Medical History HTN (hypertension) Gout Cervical disc disease Back pain Surgical History History of lumbar surgery History of testicular surgery H/O hand surgery History of ankle surgery H/O cervical discectomy Social History Smoking and tobacco/nicotine status: never used tobacco/nicotine Alcohol intake: current Alcohol intake frequency: holidays/special occasions only Substance/Drug Use: never Vitals/I&O/Wt Last Vital Signs Temp 99.5 F 02/17/25 21:50 Pulse 92 02/18/25 11:05 Resp 16 02/18/25 11:05 BP 140/84 02/18/25 11:05 Pulse Ox 94 02/18/25 11:05 O2 Del Method Room Air 02/18/25 06:03 02/17/25 02/18/25 02/18/25 22:59 06:59 14:59 Intake Total 0 / 0 300 / 300 Balance 0 / 0 300 / 300 Weight last 48 hrs Weight 115.666 kg Physical Exam Const: COMMON NORMALS: patient oriented x3 and alert GENERAL APPEARANCE: cooperative ORIENTATION/CONSCIOUSNESS: Yes awake HENMT: COMMON NORMALS: oropharynx normal Neck/C-Spine: COMMON NORMALS: no JVD Resp: COMMON NORMALS: normal respiratory effort and clear to auscultation bilaterally AUSCULTATION: clear to auscultation bilaterally Cardio: COMMON NORMALS: no JVD, regular rhythm, S1 normal heart sound present, S2 normal heart sound present and No murmurs present (Cardio) RHYTHM: regular rhythm HEART SOUNDS: S1 normal heart sound present and S2 normal heart sound present GI: COMMON NORMALS: Normal to inspection, nondistended, normoactive bowel sounds present, Soft to palpation and non-tender PALPATION: Yes Soft to palpation Extremity: RIGHT UPPER EXTREMITY: Yes elbow joint (Swelling posterior aspect with fluid around bursa, pain. Mild erythema late) Neuro: COMMON NORMALS: patient oriented x3 and moves all extremities SENSORIUM/ORIENTATION: Yes alert Skin: COMMON NORMALS: no rashes or lesions noted GENERAL SKIN EXAM: no rashes or lesions noted Data 02/18/25 00:04 02/18/25 00:04 Micro: Microbiology 02/18/25 10:05 Blood Culture - Preliminary Blood SPECIMEN COLLECTED 02/18/25 10:10 Blood Culture - Preliminary Blood SPECIMEN COLLECTED A&P Assessment and plan (1) Pain and swelling of right elbow: Patient presents with acute right elbow swelling, redness, and decreased range of motion, with history of prior similar episodes and remote injury. Imaging (x-ray and MRI) shows large effusion, dorsal soft tissue swelling, and possible bursitis/cellulitis, but no well-formed fluid collection or marrow edema. Labs show leukocytosis (13.74), mild hyponatremia (Na 134), elevated CRP (63.8), and normal ESR (10). Orthopedic consult obtained; low suspicion for septic arthritis per current evaluation. Infection (cellulitis, bursitis) and gout are both considered. No corticosteroids planned due to possible infection. Antibiotics (linezolid) started. Patient reports worsening swelling despite ice and elevation. No open ulcers. Pain is significant, affecting sleep. No current fever, but subjective chills yesterday. No GI or urinary symptoms. Differential includes cellulitis, septic bursitis, gout flare, and less likely septic arthritis (low suspicion per ortho and imaging). - US guided aspiration, discussed with ortho and radiology, requested. Requested synovial fluid analysis, Gram stain culture and crystals. Assess for possible septic arthritis. - Continue linezolid (antibiotic) as started. Add Zosyn empirically for now. Monitor for risk of cytopenia, C. difficile, SJS. - Orthopedic consult to further evaluate need for surgical intervention. Discussed with orthopedic surgeon. - Consider adding IV Toradol as needed for anti-inflammatory effect (if not contraindicated). Has been requiring IV Dilaudid for severe breakthrough pain. - Avoid corticosteroids due to possible infection - Elevate affected limb - Monitor for changes in swelling, redness, or systemic symptoms - Check uric acid level to assess for gout involvement - Monitor blood glucose given borderline readings and infection risk. Check A1c. Plan Gout: Check uric acid. Continue allopurinol. History of gout with prior flares in toes, right ankle (with surgeries), and knee. Currently on allopurinol and colchicine as needed. Gout considered as a possible contributor to current elbow symptoms, especially given prior joint injury and history of flares in previously injured joints. No current evidence of acute gout flare elsewhere. - Continue allopurinol and colchicine as needed - Check uric acid level to assess for possible gout flare contribution to current symptoms HTN: Continue amlodipine. Chronic back pain : Chronic back pain due to degenerative disc disease, history of lumbar and cervical spine surgeries. PDMP PDMP Reviewed: Not Reviewed Attestations Medical Necessity Statement*: Admission of over 2 midnights anticipated for assessment management of acutely worsening swelling, pain, warmth, some erythema of the right elbow, disabling with reduced range of motion, severe pain, further assessment of inflammatory versus infectious causes. Diagnoses Pain and swelling of right elbow M25.521; M25.421
--- NOTE | 2025-02-18 12:41 | PM.CONSULT ---
Providers/Reason For Consult Consulting Physician/Specialty*: Hospitalist Reason for Consult*: Elbow swelling and pain on the right Primary Care Provider: Lynn Iqbal MD History of Present Illness History of Present Illness Marc Skinner is a 49 year old male right elbow swelling and decreased range of motion. Patient states that his elbow pain started Friday and has continued to worsen. States that he has had fluid buildup in the past. States that this feels different and is worsening faster. Patient reports that typically he is able to move his arm with no difficulty even with the swelling, but he has significant pain with attempts of moving his right elbow. Patient has not had any fevers. Has a history of gout. Patient stated that the swelling in the elbow came up on Friday. Patient stated the injured his elbow in the couple years ago and had a piece of bone floating in his elbow . Review of Systems Const: Denies: fever(s), chills, body aches or malaise ENMT: Denies: throat pain Card: Denies: chest pain, edema, pre-syncope or dyspnea on exertion Resp: Denies: dyspnea, productive cough, change in phlegm color or hemoptysis GI: Denies: abdominal pain, nausea, vomiting, diarrhea, constipation, hematochezia or melena : Denies: flank pain, difficulty urinating, urinary frequency or hematuria Musc: Reports: joint pain, joint swelling, joint redness and joint warmth; Denies: back pain Skin/Breast: Denies: rash or new lesions Neuro: Denies: headache(s) or confusion Medications/Allergies Home Medications ?Medication ?Instructions ?Recorded ?Confirmed ?Last Taken ?Type allopurinol 100 mg tablet 200 mg PO DAILY 07/04/23 02/18/25 02/16/25 History naproxen 500 mg tablet (Naprosyn) 500 mg PO BID 7 days #90 tabs 07/28/23 02/18/25 02/17/25 Rx colchicine 0.6 mg tablet (Colcrys) See Rx Instructions .Route 08/11/24 02/18/25 02/17/25 Rx .COMPLEX #30 tabs amlodipine 10 mg tablet 10 mg PO DAILY 02/18/25 02/18/25 02/17/25 History Allergies Allergy/AdvReac Type Severity Reaction Status Date / Time No Known Allergies Allergy Verified 11/25/24 08:34 PFSH Acute PFSH: Medical History HTN (hypertension) Gout Cervical disc disease Back pain Surgical History History of lumbar surgery History of testicular surgery H/O hand surgery History of ankle surgery H/O cervical discectomy Social History Smoking and tobacco/nicotine status: never used tobacco/nicotine Alcohol intake: current Alcohol intake frequency: holidays/special occasions only Substance/Drug Use: never Vitals/I&O/Wt Last Vital Signs Temp 99.5 F 02/17/25 21:50 Pulse 88 02/18/25 11:53 Resp 16 02/18/25 11:53 BP 133/86 02/18/25 11:53 Pulse Ox 96 02/18/25 11:53 O2 Del Method Room Air 02/18/25 06:03 02/17/25 02/18/25 02/18/25 22:59 06:59 14:59 Intake Total 0 / 0 300 / 300 Balance 0 / 0 300 / 300 Weight last 48 hrs Weight 255 lb Physical Exam Narrative: Alert and oriented x 3 Head is normocephalic atraumatic Respirations are intact Right elbow is swollen bursa. The bursa does not feel like it is fluid it feels more solid. Erythema around the swelling of the bursa. Data 02/18/25 00:04 02/18/25 00:04 Micro: Microbiology 02/18/25 10:05 Blood Culture - Preliminary Blood SPECIMEN COLLECTED 02/18/25 10:10 Blood Culture - Preliminary Blood SPECIMEN COLLECTED A&P Assessment and plan (1) Pain and swelling of right elbow: Patient with right elbow swelling starting Friday. No fevers. Questionable infection versus gout. Possibly get ultrasound guided aspiration of the ulnohumeral joint to see if there is infection versus gout. Will follow along. Patient actually had spine surgery with me in October 2022. PDMP PDMP Reviewed: Not Reviewed Coding Level of Care Code Acute Code for Chg Fwd Diagnoses Pain and swelling of right elbow M25.521; M25.421
--- NOTE | 2025-02-18 12:59 | US_ITS ---
WS: [id number] RIGHT ELBOW JOINT ultrasound-guided aspiration. HISTORY: RIGHT elbow joint effusion. Procedure, risks, and complications are explained to the patient. Consent was obtained. Skin is cleansed with ChloraPrep and anesthetized with 1% buffered lidocaine. Joint effusion is localized. Skin is cleansed with ChloraPrep and anesthetized with 1% buffered lidocaine. 20-gauge spinal needle is inserted into the fluid collection with ultrasound guidance. No complications. Vessels are avoided along the pathway to the joint effusion. Needle enters the lateral elbow joint, slightly posterior. Approximately 8 cc of yellow, opaque fluid aspirated from the joint. No complications were encountered. Fluid is transferred to a sterile container for analysis. / softtise mt dr jhaveri [id number] IMPRESSION: Uncomplicated RIGHT elbow joint effusion aspiration. Aspiration yielded 8 cc of yellow opaque fluid.
[2025-02-18] MEDS: amlodipine 10 mg Tablet PO (13:08)
[2025-02-18] MEDS: sodium chloride 0.9% 1,000 ML 100 ML IV (13:08)
[2025-02-18] MEDS: piperacillin-tazobactam 3.375 GM in sodium chloride 0.9% (plus) 50 ML IV ×2 (13:09→20:32)
[2025-02-18 14:09] LABS: Appearance Synovial Fluid TURBID (CLEAR); Color Synovial Fluid PALE YELLOW (PALE YELLOW); PATH Referal YES; RBC Synovial Fluid 3 10^3/uL (0-0); Synovial Fluid Mononuclear # 5.834 10^3/uL; Synovial Fluid Polynuclear # 84.332 10^3/uL; WBC Synovial Fluid 90166 /uL (0-150)
[2025-02-18 14:09] LABS: Estmated Average Glucose 94; Hemoglobin A1C 4.9 % (4.0-6.0)
[2025-02-18 14:10] LABS: Cyto Order Verification No Order
[2025-02-18 14:12] LABS: Crystals, Fluid SENT TO PATH
[2025-02-18] MEDS: HYDROcodone-acetaminophen 5-325 mg Tablet 1 TAB PO ×2 (16:17→20:32)
[2025-02-18] MEDS: ketorolac 30 mg/mL INJ IVP (20:32)
[2025-02-18 22:55] LABS: Chlamydia Trachomatis NOT DETECTED; Neisseria Gonorrhea NOT DETECTED
[2025-02-19] VITALS (17 sets, daily range): BP systolic 113–190; BP diastolic 72–103; PULSE 66–91; RESP 9–22; TEMP 36.5–37.1; O2SAT 91–100
[2025-02-19] MEDS: sodium chloride 0.9% 1,000 ML 100 ML IV (02:50)
[2025-02-19] MEDS: HYDROcodone-acetaminophen 5-325 mg Tablet 1 TAB PO ×4 (02:53→19:39)
[2025-02-19] MEDS: ketorolac 30 mg/mL INJ IVP ×2 (02:55→18:27)
[2025-02-19 05:14] LABS: Basophils % 0.4 %; Eosinophils # 0.1 10^3/uL (0.0-0.8); Lymphocytes # 1.1 10^3/uL (0.8-4.8); Lymphocytes % 12.6 %; Mean Corpuscular HGB Conc 33.1 g/dL (30-55); Mean Corpuscular Hemoglobin 33.4 pg (27-33); Mean Corpuscular Volume 101.1 fl (82-101); Mean Platelet Volume 9.6 fL (7.4-10.4); Neutrophils % 74.7 %; Nucleated Red Blood Cells % 0 %; Platelet Count 191 10^3/cmm (157-399); Red Blood Count 3.56 10^6/uL (3.85-5.65); Red Cell Distribution Width 12.9 % (12.1-15.1); White Blood Count 8.98 10^3/uL (3.29-11.43)
[2025-02-19 05:30] LABS: Alanine Aminotransferase 20 U/L (0-41); Albumin Level 3.5 g/dL (3.5-5.2); Alkaline Phosphatase 66 U/L (40-130); Anion Gap 14.6 (5-19); Aspartate Amino Transferase 19 U/L (0-40); Blood Urea Nitrogen 9 mg/dL (6-20); Calcium 8.8 mg/dL (8.5-10.5); Carbon Dioxide 23 mmol/L (22-29); Chloride 100 mmol/L (98-107); Creatinine Clr Calc Pharmacy 172.4255; Glomerular Filtration Rate 120.4 mL/min (90-130); Glucose 124 mg/dL (65-115); Osmolality Calculated 278 mOsm/kg (285-295); Potassium 3.6 mmol/L (3.5-5.1); Sodium 134 mmol/L (136-145); Total Bilirubin 0.7 mg/dL (0.15-1.2); Total Protein 6.5 g/dL (6.6-8.7)
[2025-02-19] MEDS: piperacillin-tazobactam 3.375 GM in sodium chloride 0.9% (plus) 50 ML IV ×3 (05:55→22:18)
--- NOTE | 2025-02-19 07:46 | ANES.PREANE2 ---
Pre-Anesthetic Assessment Height/Weight: Height 1.83 m Weight 119.068 kg Temp Pulse Resp BP Pulse Ox O2 Del Method 98.8 F 78 18 170/90 96 Room Air 02/19/25 06:55 02/19/25 06:55 02/19/25 06:55 02/19/25 06:55 02/19/25 06:55 02/19/25 06:55 Operation Date: 02/19/25 08:10 Proposed Procedures p Incision & Drainage Upper Extremity(Right) - Bola Mayfield, Familial anesthetic complications: Woke up during three surgeries - 2 on his ankle and on 1 on his hand. Unable to tell me any of his memories during the incidents. States the doctors told him that he woke up Was Beta Madhu taken within 24 hours: N/A Was Clonidine taken within 24 hours: N/A Last intake: Intake Last Liquid Date 02/18/25 Last Liquid Time 23:59 Last Solid Date 02/18/25 Last Solid Time 23:00 Social No alcohol and No tobacco Exam alert, oriented x 3, clear to auscultation bilaterally and regular rate & rhythm Airway Mallampati: Class IV Dentition: full Comments: Comments: Full cervantes CV/HEM Hypertension Metabolic Morbid Obesity Anesthetic Plan ASA status: 2 Anesthesia: General Risk of > 500 ml blood loss (7ml/kg in children): No Medications/Allergies Home Medications ?Medication ?Instructions ?Recorded ?Confirmed ?Last Taken ?Type allopurinol 100 mg tablet 200 mg PO DAILY 07/04/23 02/18/25 02/16/25 History naproxen 500 mg tablet (Naprosyn) 500 mg PO BID 7 days #90 tabs 07/28/23 02/18/25 02/17/25 Rx colchicine 0.6 mg tablet (Colcrys) See Rx Instructions .Route 08/11/24 02/18/25 02/17/25 Rx .COMPLEX #30 tabs amlodipine 10 mg tablet 10 mg PO DAILY 02/18/25 02/18/25 02/17/25 History Allergies Allergy/AdvReac Type Severity Reaction Status Date / Time No Known Allergies Allergy Verified 11/25/24 08:34 Current Medications Generic Name Dose Route Start Last Admin Trade Name Freq PRN Reason Stop Dose Admin Hydrocodone Bitart/Acetaminophen 1 tab 02/18/25 12:59 02/19/25 02:53 Hydrocodone-Acetaminophen 5-325 Mg Tablet PO 1 tab Q4H PRN Administration MODERATE TO SEVERE PAIN Amlodipine Besylate 10 mg 02/18/25 13:00 02/18/25 13:08 Amlodipine 10 Mg Tablet PO 10 mg DAILY NAHEED Administration Hydromorphone HCl 0.5 mg 02/18/25 13:00 02/18/25 13:09 Hydromorphone 0.5 Mg/0.5 Ml Inj IVP 0.5 mg Q6H PRN Administration SEVERE PAIN Sodium Chloride 1,000 mls @ 100 mls/hr 02/18/25 13:00 02/19/25 02:50 Sodium Chloride 0.9% IV 100 mls/hr .Q10H NAHEED Administration Piperacillin Sod/Tazobactam 50 mls @ 12.5 mls/hr 02/18/25 13:00 02/19/25 05:55 Sod 3.375 gm/ Sodium Chloride IV 12.5 mls/hr Q8H NAHEED Administration Protocol Ketorolac Tromethamine 30 mg 02/18/25 12:59 02/19/25 02:55 Ketorolac 30 Mg/Ml Inj IVP 02/23/25 12:58 30 mg Q6H PRN Administration MODERATE PAIN PFSH Anesthesia Medical History HTN (hypertension) Gout Cervical disc disease Back pain Surgical History History of lumbar surgery History of testicular surgery H/O hand surgery History of ankle surgery H/O cervical discectomy Social History Smoking and tobacco/nicotine status: never used tobacco/nicotine Alcohol intake: current Alcohol intake frequency: holidays/special occasions only Substance/Drug Use: never Data Anesthesia 02/19/25 04:55 02/19/25 04:55 Short CBC 02/18/25 02/19/25 Range/Units 00:04 04:55 WBC 13.74 H 8.98 (3.29-11.43) 10^3/uL Hgb 14.10 11.90 (11.27-16.99) g/dL Hct 41.5 36.0 L (37-53) % MCV 96.3 101.1 H (82-101) fl Plt Count 233 191 (157-399) 10^3/cmm Neut % (Auto) 76.6 74.7 % Neut # (Auto) 10.52 H 6.70 (1.8-7.7) 10^3/uL BMP 02/18/25 02/19/25 00:04 04:55 Sodium 134 L 134 L Potassium 3.8 3.6 Chloride 97 L 100 Carbon Dioxide 24 23 BUN 9 9 Creatinine 0.7 0.7 Glucose 119 H 124 H Calcium 9.6 8.8 Liver Function 02/18/25 02/19/25 Range/Units 00:04 04:55 Total Bilirubin 1.0 0.7 (0.15-1.2) mg/dL AST 26 19 (0-40) U/L ALT 30 20 (0-41) U/L Alkaline Phosphatase 85 66 (40-130) U/L Albumin 4.3 3.5 (3.5-5.2) g/dL Coags 02/18/25 00:04 ESR 10 C-Reactive Protein 63.8 H Microbiology 02/18/25 13:50 Gram Stain - Final Other Source 02/18/25 10:05 Blood Culture - Preliminary Blood SPECIMEN COLLECTED 02/18/25 10:10 Blood Culture - Preliminary Blood SPECIMEN COLLECTED
--- NOTE | 2025-02-19 09:16 | PM.OP ---
Operative Report Date of procedure: February 19, 2025 Pre-op diagnosis: 1. Right elbow infection (Ulnohumeral and radiohumeral joint 2. Septic bursitis Post-op diagnosis: same Procedure done: 1. Irrigation debridement of right elbow 2. Excision of right elbow bursa Surgeon: Bola Mayfield DO Procedure: 1. Irrigation debridement of right elbow 2. Excision of right elbow bursa Patient brought the op suite after an Gonasi was placed in the supine position was measured well-padded. Patient's prepped draped in sterile fashion. Elbow was brought over the chest. Skin incisions made over the dorsal aspect of the elbow GE incision more laterally away from the medial side. The bursa was identified it had significant amount of white chalky tissue and it this bursa was then excised and sent for cultures and pathology. This was taken out. Extension was brought to identifying the tricep tendon. The tricep tendon was identified. Split down the middle to the olecranon. The joint capsule was opened posteriorly at the ulnohumeral junction. And large amounts of pus came out. This was taken for aerobic and anaerobic cultures. This was irrigated out. Next attention was brought to the radial side skin was undermined and the anconeus was identified and it just anterior to this incision was made radial humeral joint was identified. Again there was some chalky material in this as well as well as posterior tricep. And also some purulent fluid. This was irrigated so that we come out the posterior aspect irrigation was both brought through the lateral side and the posterior side. Until it was just clear fluid. Wounds were then closed in layered fashion the 0 Vicryl was used to close the anconeus. And the tricep. And then 2-0 Vicryl and nylon were used to close the skin. Patient then a sterile dressings applied was transferred to the PACU in stable condition.
[2025-02-19] MEDS: fentaNYL 50 mcg/mL INJ 2mL IVP ×2 (09:36→09:53)
--- NOTE | 2025-02-19 10:05 | ANE.PACU2 ---
Inpatient post-anesthesia follow up: Airway intact: Yes Vital signs: Temperature 97.7 F Pulse Rate 80 Respiratory Rate 20 Blood Pressure 181/75 Pulse Oximetry 95 Oxygen Delivery Me thod Room Air Oxygen Flow Rate 3 Fraction of Inspir ed Oxygen Hydration adequate: Yes Nausea and vomiting: No Pain level: 1 Mental status: Baseline
--- NOTE | 2025-02-19 11:03 | PC.OT ---
OT orders received and chart reviewed. Patient recently got out of surgery and in pain. Pain medication provided and patient is resting. RN requests to hold at this time.
--- NOTE | 2025-02-19 11:16 | PHA.VACGOAL ---
Vancomycin Goal - Goal Vancomycin Indication:: SSTI - Therapy Day of therpy:: Day []of [] . Actual body weight (kg): 262 lb 8 oz - Data Labs: WBC 8.98 10^3/uL (3.29-11.43) 02/19/25 04:55 RBC 3.56 10^6/uL (3.85-5.65) L 02/19/25 04:55 Hgb 11.90 g/dL (11.27-16.99) 02/19/25 04:55 Hct 36.0 % (37-53) L 02/19/25 04:55 MCV 101.1 fl (82-101) H 02/19/25 04:55 MCH 33.4 pg (27-33) H 02/19/25 04:55 MCHC 33.1 g/dL (30-55) 02/19/25 04:55 RDW 12.9 % (12.1-15.1) 02/19/25 04:55 Sodium 134 mmol/L (136-145) L 02/19/25 04:55 Potassium 3.6 mmol/L (3.5-5.1) 02/19/25 04:55 Chloride 100 mmol/L (98-107) 02/19/25 04:55 Carbon Dioxide 23 mmol/L (22-29) 02/19/25 04:55 Anion Gap 14.6 (5-19) 02/19/25 04:55 BUN 9 mg/dL (6-20) 02/19/25 04:55 Creatinine 0.7 mg/dL (0.7-1.2) 02/19/25 04:55 GFR Calculation 120.4 mL/min (90-130) 02/19/25 04:55 Treatment plan:: new consult Regimen:: 1500 MG Q8H
[2025-02-19] MEDS: amlodipine 10 mg Tablet PO (12:15)
[2025-02-19] MEDS: vancomycin 1,500 MG/300 ML PIGGYBACK 200 MG IV ×2 (13:19→19:40)
[2025-02-19] MEDS: HYDROmorphone 0.5 MG/0.5 ML INJ IVP ×2 (13:24→22:18)
--- NOTE | 2025-02-19 15:34 | PM.PN ---
Subjective Subjective: Patient was seen postoperatively, he is alert oriented x 3, following all commands he tells me that he works in [email or web address], works in the [employer] department, he does report superficial abrasions associated with bug bites, bilateral extremities, but no cat bite, no dog bite, no known penetrating injury, he does have a history of neck surgery in which he has a plate in his neck, he does have hardware in the right lower extremity Vitals/I&O/Wt Last Vital Signs Temp 98.0 F 02/19/25 12:10 Pulse 80 02/19/25 12:10 Resp 19 H 02/19/25 12:10 BP 176/91 02/19/25 12:10 Pulse Ox 96 02/19/25 12:10 O2 Del Method Nasal Cannula 02/19/25 10:49 O2 Flow Rate 3 02/19/25 10:06 02/19/25 02/19/25 02/19/25 06:59 14:59 22:59 Intake Total 1410 / 2120 880 / 880 1000 / 1880 Output Total 10 Balance 1410 / 1770 870 / 870 1000 / 1870 Weight last 48 hrs Weight 119.068 kg Weight 119.748 kg Weight 115.666 kg Physical Exam Const: COMMON NORMALS: no acute distress and patient oriented x3 Resp: COMMON NORMALS: normal respiratory effort, No retractions, No use of accessory muscles and clear to auscultation bilaterally AUSCULTATION: clear to auscultation bilaterally Cardio: COMMON NORMALS: regular rate, regular rhythm, S1 normal heart sound present and S2 normal heart sound present RATE: regular rate RHYTHM: regular rhythm HEART SOUNDS: S1 normal heart sound present and S2 normal heart sound present GI: COMMON NORMALS: Normal to inspection, nondistended, normoactive bowel sounds present and non-tender Extremity: COMMON NORMALS: no pedal edema NARRATIVE EXTREMITY EXAM: Right arm wrapped Neuro: COMMON NORMALS: patient oriented x3 Psych: COMMON NORMALS: mental status grossly normal Data 02/19/25 04:55 02/19/25 04:55 Micro: Microbiology 02/19/25 08:35 Gram Stain - Final Elbow - #1 02/19/25 08:35 Gram Stain - Final Elbow - #1 02/18/25 13:50 Gram Stain - Final Other Source Body Fluid Culture - Preliminary 02/18/25 10:05 Blood Culture - Preliminary Blood NEGATIVE TO DATE 02/18/25 10:10 Blood Culture - Preliminary Blood NEGATIVE TO DATE A&P Assessment and plan (1) Pain and swelling of right elbow: - Concerns for septic bursitis -Versus gout Elbow MRI - MR/MR elbow RT wo/w con [id number] IMPRESSION: 1. Large elbow joint effusion without enhancement. 2. Soft tissue enhancement along the posterior olecranon consistent with cellulitis. Olecranon bursitis may also be present. There is no well-formed fluid collection. 3. . Limited MRI evaluation of the elbow due artifact and difficulty positioning the patient. 4. No marrow edema or abnormal enhancement. - Status post ultrasound-guided aspiration, 8 cc of yellow opaque fluid removed - Fluid pale, yellow, turbid, 90,000 white blood cells, 93.5% PMN cells - Aspiration cultures have no growth - However Gram stain does show many white blood cells, rare gram-positive cocci in pairs - Patient is status post irrigation and debridement of right elbow and excision of right elbow bursa by Dr. Mayfield, postop day 0 Plan - Follow surgical cultures - Follow aspiration cultures - Follow blood cultures - Continue vancomycin - Continue Zosyn - Continue hydrocodone for pain - Full code - Lovenox for DVT prophylaxis Plan Gout: -Uric acid 7 - Continue allopurinol - Hold colchicine as there is concerns for active infection HTN: Continue amlodipine. Chronic back pain : Chronic back pain due to degenerative disc disease, history of lumbar and cervical spine surgeries. PDMP PDMP Reviewed: Not Reviewed Attestations Medical Necessity Statement*: Patient requires hospitalization for concern for septic bursitis Diagnoses Pain and swelling of right elbow M25.521; M25.421
[2025-02-19] MEDS: ceFAZolin 2,000 mg SDV 2000 MG IVP (18:17)
[2025-02-20] VITALS (7 sets, daily range): BP systolic 121–181; BP diastolic 75–98; PULSE 62–83; RESP 16–20; TEMP 36.5–37.1; O2SAT 95–99
[2025-02-20] MEDS: ceFAZolin 2,000 mg SDV 2000 MG IVP (01:29)
[2025-02-20] MEDS: ketorolac 30 mg/mL INJ IVP ×2 (01:30→23:41)
[2025-02-20] MEDS: vancomycin 1,500 MG/300 ML PIGGYBACK 200 MG IV ×3 (04:24→19:42)
[2025-02-20 04:59] LABS: Basophils % 0.1 %; Hematocrit 39.8 % (37-53); Lymphocytes # 1.1 10^3/uL (0.8-4.8); Lymphocytes % 7.8 %; Mean Corpuscular HGB Conc 32.2 g/dL (30-55); Mean Corpuscular Hemoglobin 32.6 pg (27-33); Mean Corpuscular Volume 101.3 fl (82-101); Mean Platelet Volume 9.9 fL (7.4-10.4); Monocytes % 7.3 %; Neutrophils % 84.4 %; Nucleated Red Blood Cells % 0 %; Platelet Count 253 10^3/cmm (157-399); Red Blood Count 3.93 10^6/uL (3.85-5.65); Red Cell Distribution Width 12.5 % (12.1-15.1); White Blood Count 13.63 10^3/uL (3.29-11.43)
[2025-02-20 05:17] LABS: Alanine Aminotransferase 30 U/L (0-41); Albumin Level 3.6 g/dL (3.5-5.2); Alkaline Phosphatase 78 U/L (40-130); Anion Gap 17.5 (5-19); Aspartate Amino Transferase 34 U/L (0-40); Blood Urea Nitrogen 8 mg/dL (6-20); Calcium 9.6 mg/dL (8.5-10.5); Carbon Dioxide 22 mmol/L (22-29); Chloride 104 mmol/L (98-107); Globulin 3.7 g/dL (1.3-4.6); Glomerular Filtration Rate 120.4 mL/min (90-130); Glucose 144 mg/dL (65-115); Osmolality Calculated 289 mOsm/kg (285-295); Potassium 4.5 mmol/L (3.5-5.1); Sodium 139 mmol/L (136-145); Total Bilirubin 0.3 mg/dL (0.15-1.2); Total Protein 7.3 g/dL (6.6-8.7)
[2025-02-20] MEDS: piperacillin-tazobactam 3.375 GM in sodium chloride 0.9% (plus) 50 ML IV ×3 (05:59→23:39)
--- NOTE | 2025-02-20 08:27 | P.PN_ITS ---
Subjective 2 Subjective: Patient states pain is much better this morning. At this point no complaints. Vitals/I&O/Wt Last Vital Signs Temp 97.7 F 02/20/25 07:18 Pulse 80 02/20/25 07:18 Resp 20 H 02/20/25 07:18 BP 181/75 02/20/25 07:18 Pulse Ox 95 02/20/25 07:18 O2 Del Method Room Air 02/20/25 07:18 O2 Flow Rate 3 02/19/25 10:06 02/19/25 02/20/25 02/20/25 22:59 06:59 14:59 Intake Total 1350 / 2230 350 / 2580 Balance 1350 / 2220 350 / 2570 Weight last 48 hrs Weight 272 lb 6.4 oz Weight 262 lb 8 oz Weight 264 lb Physical Exam 2 Narrative: Patient's neurovasc intact in his right upper extremity. Pain controlled up ambulating Data 02/20/25 04:47 02/20/25 04:47 Micro: Microbiology 02/19/25 08:35 Gram Stain - Final Elbow - #1 02/19/25 08:35 Gram Stain - Final Elbow - #1 02/18/25 13:50 Gram Stain - Final Other Source Body Fluid Culture - Preliminary 02/18/25 10:05 Blood Culture - Preliminary Blood NEGATIVE TO DATE 02/18/25 10:10 Blood Culture - Preliminary Blood NEGATIVE TO DATE A&P Assessment and plan (1) Pain and swelling of right elbow: Patient is postop day #1 irrigation debridement of right elbow IntraOp appeared to be gout as well as possible infection. Discharge planning per primary service PDMP PDMP Reviewed: Not Reviewed Attestations 2 Medical Necessity Statement*: Per primary service Coding Level of Care Code Acute Code for Chg Fwd Diagnoses Pain and swelling of right elbow M25.521; M25.421
[2025-02-20] MEDS: amlodipine 10 mg Tablet PO (08:50)
[2025-02-20] MEDS: HYDROcodone-acetaminophen 5-325 mg Tablet 1 TAB PO (08:50)
[2025-02-20] MEDS: allopurinol 100 mg Tablet 200 MG PO (08:50)
[2025-02-20] MEDS: HYDROmorphone 0.5 MG/0.5 ML INJ IVP (10:13)
[2025-02-20 11:29] LABS: Vancomycin Trough 14.3 ug/mL (10-15)
[2025-02-20] MEDS: HYDROcodone-acetaminophen 10-325 mg Tablet 1 TAB PO ×3 (15:00→23:45)
--- NOTE | 2025-02-20 17:14 | P.PN_ITS ---
Subjective 2 Subjective: Patient was seen this morning, denies any fevers, chills, no cough, no nausea, no vomiting Vitals/I&O/Wt Last Vital Signs Temp 98.1 F 02/20/25 16:13 Pulse 75 02/20/25 16:13 Resp 19 H 02/20/25 16:13 BP 147/98 02/20/25 16:13 Pulse Ox 95 02/20/25 16:13 O2 Del Method Room Air 02/20/25 16:13 O2 Flow Rate 3 02/19/25 10:06 02/20/25 02/20/25 02/20/25 06:59 14:59 22:59 Intake Total 350 / 2580 1190 / 1190 Balance 350 / 2570 1190 / 1190 Weight last 48 hrs Weight 123.559 kg Weight 119.068 kg Physical Exam 2 Const: COMMON NORMALS: no acute distress and patient oriented x3 Resp: COMMON NORMALS: normal respiratory effort, No retractions, No use of accessory muscles and clear to auscultation bilaterally AUSCULTATION: clear to auscultation bilaterally Cardio: COMMON NORMALS: regular rate, regular rhythm, S1 normal heart sound present and S2 normal heart sound present RATE: regular rate RHYTHM: r egular rhythm HEART SOUNDS: S1 normal heart sound present and S2 normal heart sound present GI: COMMON NORMALS: Normal to inspection, nondistended, normoactive bowel sounds present and non-tender Extremity: COMMON NORMALS: no pedal edema NARRATIVE EXTREMITY EXAM: Right arm wrapped Neuro: COMMON NORMALS: patient oriented x3 Psych: COMMON NORMALS: mental status grossly normal Data 02/20/25 04:47 02/20/25 04:47 Micro: Microbiology 02/19/25 08:35 Gram Stain - Final Elbow - #1 Abscess Culture - Preliminary 02/19/25 08:35 Gram Stain - Final Elbow - #1 Tissue Culture - Preliminary 02/18/25 13:50 Gram Stain - Final Other Source Body Fluid Culture - Preliminary A&P Assessment and plan (1) Pain and swelling of right elbow: - Concerns for septic bursitis -Versus gout Elbow MRI - MR/MR elbow RT wo/w con [id number] IMPRESSION: 1. Large elbow joint effusion without enhancement. 2. Soft tissue enhancement along the posterior olecranon consistent with cellulitis. Olecranon bursitis may also be present. There is no well-formed fluid collection. 3. . Limited MRI evaluation of the elbow due artifact and difficulty positioning the patient. 4. No marrow edema or abnormal enhancement. - Status post ultrasound-guided aspiration, 8 cc of yellow opaque fluid removed - Fluid pale, yellow, turbid, 90,000 white blood cells, 93.5% PMN cells - Aspiration cultures have no growth - However Gram stain does show many white blood cells, rare gram-positive cocci in pairs - Patient is status post irrigation and debridement of right elbow and excision of right elbow bursa by Dr. Mayfield, postop day Plan - Follow surgical cultures - Follow aspiration cultures - Follow blood cultures -Reordered crystal fluid analysis - Continue vancomycin - Continue Zosyn - Continue hydrocodone for pain - Full code - Lovenox for DVT prophylaxis Plan Gout: -Uric acid 7 - Continue allopurinol - Hold colchicine as there is concerns for active infection HTN: Continue amlodipine. Chronic back pain : Chronic back pain due to degenerative disc disease, history of lumbar and cervical spine surgeries. PDMP PDMP Reviewed: Last Reviewed 02/20/25 11:07 by Joshua Hoffman MD Attestations 2 Medical Necessity Statement*: Patient requires hospitalization for pain and swelling of right elbow for concerns for septic bursitis Diagnoses Pain and swelling of right elbow M25.521; M25.421
[2025-02-21] MEDS: vancomycin 1,500 MG/300 ML PIGGYBACK 200 MG IV ×3 (03:22→14:45)
[2025-02-21 04:00] VITALS: BP 146/89; PULSE 75; RESP 17; TEMP 36.9; O2SAT 100
[2025-02-21 06:24] LABS: Basophils # 0.1 10^3/uL (0.0-0.1); Basophils % 0.7 %; Eosinophils # 0.1 10^3/uL (0.0-0.8); Eosinophils % 1.1 %; Hematocrit 35.4 % (37-53); Lymphocytes # 1.9 10^3/uL (0.8-4.8); Lymphocytes % 22.5 %; Mean Corpuscular HGB Conc 31.9 g/dL (30-55); Mean Corpuscular Hemoglobin 32.3 pg (27-33); Mean Corpuscular Volume 101.1 fl (82-101); Mean Platelet Volume 9.9 fL (7.4-10.4); Monocytes # 0.8 10^3/uL (0.2-0.9); Monocytes % 9.6 %; Neutrophils # 5.49 10^3/uL (1.8-7.7); Neutrophils % 65.9 %; Nucleated Red Blood Cells % 0 %; Platelet Count 268 10^3/cmm (157-399); Red Cell Distribution Width 12.9 % (12.1-15.1); White Blood Count 8.34 10^3/uL (3.29-11.43)
[2025-02-21] MEDS: piperacillin-tazobactam 3.375 GM in sodium chloride 0.9% (plus) 50 ML IV (06:24)
[2025-02-21] MEDS: ketorolac 30 mg/mL INJ IVP ×2 (06:30→16:44)
[2025-02-21 06:42] LABS: Alanine Aminotransferase 23 U/L (0-41); Albumin Level 3.4 g/dL (3.5-5.2); Alkaline Phosphatase 65 U/L (40-130); Anion Gap 15.8 (5-19); Aspartate Amino Transferase 21 U/L (0-40); Blood Urea Nitrogen 7 mg/dL (6-20); Calcium 8.9 mg/dL (8.5-10.5); Carbon Dioxide 24 mmol/L (22-29); Chloride 100 mmol/L (98-107); Creatinine Clr Calc Pharmacy 203.5202; Globulin 3.2 g/dL (1.3-4.6); Glomerular Filtration Rate 143.8 mL/min (90-130); Glucose 100 mg/dL (65-115); Osmolality Calculated 280 mOsm/kg (285-295); Potassium 3.8 mmol/L (3.5-5.1); Sodium 136 mmol/L (136-145); Total Bilirubin 0.3 mg/dL (0.15-1.2); Total Protein 6.6 g/dL (6.6-8.7)
[2025-02-21] MEDS: cefTRIAXone 2,000 mg SDV 2000 MG IVP (06:44)
[2025-02-21 07:12] VITALS: BP 154/88; PULSE 75; RESP 20; TEMP 36.7; O2SAT 98
--- NOTE | 2025-02-21 07:23 | P.PN_ITS ---
Subjective 2 Subjective: Patient elbow is feeling better today continues to improve. Vitals/I&O/Wt Last Vital Signs Temp 98.0 F 02/21/25 07:12 Pulse 75 02/21/25 07:12 Resp 20 H 02/21/25 07:12 BP 154/88 02/21/25 07:12 Pulse Ox 98 02/21/25 07:12 O2 Del Method Room Air 02/21/25 07:12 O2 Flow Rate 3 02/19/25 10:06 02/20/25 02/21/25 02/21/25 22:59 06:59 14:59 Intake Total 1050 / 2240 2213.542 / 4453.542 Balance 1050 / 2240 2213.542 / 4453.542 Weight last 48 hrs Weight 270 lb 1.6 oz Weight 272 lb 6.4 oz Physical Exam 2 Narrative: Patient arm is still wrapped. Told is okay to take the wrapping off to change dressing as needed when he is home. Data 02/21/25 05:36 02/21/25 05:36 Micro: Microbiology 02/19/25 08:35 Gram Stain - Final Elbow - #1 Abscess Culture - Preliminary 02/19/25 08:35 Gram Stain - Final Elbow - #1 Tissue Culture - Preliminary 02/18/25 13:50 Gram Stain - Final Other Source Body Fluid Culture - Preliminary A&P Assessment and plan (1) Pain and swelling of right elbow: Patient is postop day #2 irrigation debridement of elbow and bursectomy. Follow-up orthopedic clinic in 2 weeks. PDMP PDMP Reviewed: Not Reviewed Attestations 2 Medical Necessity Statement*: Per primary service Coding Level of Care Code Acute Code for Chg Fwd Diagnoses Pain and swelling of right elbow M25.521; M25.421
[2025-02-21] MEDS: allopurinol 100 mg Tablet 200 MG PO (09:01)
[2025-02-21] MEDS: HYDROcodone-acetaminophen 10-325 mg Tablet 1 TAB PO ×3 (09:01→16:44)
[2025-02-21] MEDS: amlodipine 10 mg Tablet PO (09:01)
[2025-02-21 11:03] VITALS: BP 157/94; PULSE 74; RESP 20; TEMP 36.8; O2SAT 98
--- NOTE | 2025-02-21 11:20 | XR_ITS ---
WS: [id number] Exam: XR chest 1V portable [id number] Date/Time of Exam: 02/21/2025 12:14 PM Reason For Exam: Post PICC insertion There are 2 AP portable chest radiograph submitted for evaluation. The first exam was performed at 12:21 p.m. on 02/21/2025 and the second at 12:27 p.m. on 02/21/2025. The last radiograph shows a left-sided PICC line in place ending at the cavoatrial junction in good position. The lungs are clear and fully expanded. Normal cardiomediastinal silhouette and regional bony elements. IMPRESSION1. Final images show a left-sided PICC line ending at the cavoatrial junction. The chest is otherwise unremarkable.
--- NOTE | 2025-02-21 13:09 | PICC.NOTE ---
Single lumen PICC placed to left basilic vein. Referred to vascular access nurse for PICC placement due to need for IV antibiotics x 6 weeks. Risks and benefits discussed and informed consent obtained. Pt with infection to right elbow. Left arm assessed with left basilic vein measuring 5.0 mm, straight, and apparent best choice for placement. Using sterile technique and MST, left basilic vein accessed x 1 stick. Mid-arm circumference measured 10 cm from left AC 32 cm. Trimmed cath 47 cm with 0 cm external length noted. CXR shows tip in cavoatrial junction, in good position for use per radiologist. Line secured with stat-lock. Insertion site covered with Biopatch and TSM. Report given to bedside nurse, AJ Turner. Home infusion instructions given verbally and written. Pt taught how to flush catheter with saline and administer home antibiotics via push and pump. [facility] mat and written materials provided. Pt verbalized understanding.
--- NOTE | 2025-02-21 14:04 | P.CONIM_ITS ---
Providers/Reason For Consult 2 Consulting Physician/Specialty*: Infectious Disease/ Diana Pa MD Reason for Consult*: septic arthirtis Requesting Physician: Joshua Hoffman MD Attending Physician: Joshua Hoffman MD Primary Care Provider: Lynn Iqbal MD History of Present Illness History of Present Illness Marc Skinner is a 49 year old male With a past medical history of gout on daily allopurinol prophylaxis. Presenting to the emergency room with a right elbow swelling which progressed rapidly over 3 to 4 days. Patient states that he first injured his right elbow in 2004 after hitting it against a rock during combat. Thereafter he suspects he had a minor fracture which healed with 4 weeks of rest. No imaging was done at the time. About 2 years ago patient noticed that he developed a swelling over the right olecranon area which has been persistent since then. He states that it felt firm , like eggshells . The swelling was warm and tender when it first appeared. Patient took a course of NSAIDs and the pain was much improved. However the swelling remained persistent over this time. He states he followed up with his primary care physician and a drainage was offered, however it was felt that the swelling is highly likely to recur therefore it was never drained. He states he has not had any imaging prior to the current admission. Patient was currently admitted on February 18, 2025 after presenting with 3 to 4 days of initially what appeared to be a sore right elbow. Patient attributed this to working on his computer with pressure over the right elbow for an extended time. However over the next day or 2 with the area became warm, tender, erythematous and eventually the last the ability to flex or extend the arm. He states extension was particularly painful. He had been taking colchicine at home however did not have any relief with this medication. He has a history of gout, however this has previously affected joints of the lower extremity. He states he had chills all day on . He was seen in the emergency room on February 18. Ultrasound-guided aspiration was performed which showed synovial WBC at 90,000 with 93% PMNs raising concern for septic arthritis. Crystal analysis remains pending from this day. Gram stain showed gram-positive cocci in pairs. Cultures so far negative to date. On February 19, 2025 he underwent irrigation and debridement of the right elbow with excision of the right elbow bursa. Review of intraoperative notes shows that the olecranon bursa had significant amount of white chalky tissue which was retrieved upon excision and sent for culture and pathology. Joint capsule of the ulnohumeral joint was opened and large amounts of pus came out. This was irrigated and cultures were sent. Incision was also made into the radiohumeral joint and some chalky material was expressed along with purulent fluid. All operating room cultures are currently negative to date. Blood culture was negative upon admission. There is no history of penetrating trauma at the site. Patient have animals in the home but there is no history of puncture or bite wounds. He has remained afebrile and hemodynamically stable during the course of admission. Review of Systems 2 General: Reports: 10 or more systems reviewed and unremarkable except in HPI and below Const: Denies: fever(s), chills or body aches Eyes: Denies: change in vision, blurry vision or photophobia ENMT: Reports: hoarseness; Denies: throat pain, enlarged tonsils, odynophagia or nasal congestion Card: Denies: chest pain, palpitations, irregular heart rhythm, edema, swelling of feet/ankles, lightheadedness, pre-syncope, dyspnea on exertion or orthopnea Resp: Denies: dyspnea, productive cough, non-productive cough, wheezing, stridor, pain on inspiration, change in phlegm color, hemoptysis or chest congestion GI: Denies: abdominal pain, nausea, vomiting, hematemesis, coffee ground emesis, dysphagia, heartburn, diarrhea, constipation, GI cramping, change in stool character, hematochezia or melena : Denies: flank pain, dysuria, urinary frequency, urinary urgency, urinary hesitancy or hematuria Musc: Denies: neck pain, back pain, extremity pain, joint swelling, joint warmth or deformity Neuro: Denies: headache(s), numbness in extremities, weakness in extremities, sensory changes, difficulty walking, frequent falls, dizziness, vertigo, behavioral changes, Slurred speech present or seizure-like activity Psych: Denies: anxiety, depression, suicidal ideation or homicidal ideation Endo: Denies: polyuria, polydipsia, tired all the time, cold intolerance or hot flashes Hiro/Lymph: Denies: easy bruising or easy bleeding Medications/Allergies Home Medications ?Medication ?Instructions ?Recorded ?Confirmed ?Last Taken ?Type allopurinol 100 mg tablet 200 mg PO DAILY 07/04/2302/16/25 History naproxen 500 mg tablet (Naprosyn) 500 mg PO BID 7 days #90 tabs 07/28/23 02/18/25 02/17/25 Rx colchicine 0.6 mg tablet (Colcrys) See Rx Instructions .Route 08/11/24 02/18/25 02/17/25 Rx .COMPLEX #30 tabs amlodipine 10 mg tablet 10 mg PO DAILY 02/18/25 06/02/17/25 History Allergies Allergy/AdvReac Type Severity Reaction Status Date / Time No Known Allergies Allergy Verified 11/25/24 08:34 Current Medications Generic Name Dose Route Start Last Admin Trade Name Freq PRN Reason Stop Dose Admin Hydrocodone Bitart/Acetaminophen 1 tab 02/20/25 11:06 02/21/25 13:11 Hydrocodone-Acetaminophen 10-325 Mg Tablet PO 1 tab Q4H PRN Administration MODERATE PAIN Allopurinol 200 mg 02/20/25 09:00 02/21/25 09:01 Allopurinol 100 Mg Tablet PO 200 mg DAILY NAHEED Administration Amlodipine Besylate 10 mg 02/18/25 13:00 02/21/25 09:01 Amlodipine 10 Mg Tablet PO 10 mg DAILY NAHEED Administration Ceftriaxone Sodium 2,000 mg 02/21/25 06:30 02/21/25 06:44 Ceftriaxone 2,000 Mg Sdv IVP 2,000 mg Q24H NAHEED Administration Protocol Ketorolac Tromethamine 30 mg 02/18/25 12:59 02/21/25 06:30 Ketorolac 30 Mg/Ml Inj IVP 02/23/25 12:58 30 mg Q6H PRN Administration MODERATE PAIN PFSH Acute 2 PFSH: Medical History HTN (hypertension) Gout Cervical disc disease Back pain Surgical History History of lumbar surgery History of testicular surgery H/O hand surgery History of ankle surgery H/O cervical discectomy Social History Smoking and tobacco/nicotine status: never used tobacco/nicotine Alcohol intake: current Alcohol intake frequency: holidays/special occasions only Substance/Drug Use: never Vitals/I&O/Wt Last Vital Signs Temp 98.2 F 02/21/25 11:03 Pulse 74 02/21/25 11:03 Resp 20 H 02/21/25 11:03 BP 157/94 02/21/25 11:03 Pulse Ox 98 02/21/25 11:03 O2 Del Method Room Air 02/21/25 11:03 O2 Flow Rate 3 02/19/25 10:06 02/20/25 02/21/25 02/21/25 22:59 06:59 14:59 Intake Total 1050 / 2240 2213.542 / 4453.542 930.000 / 930.000 Balance 1050 / 2240 2213.542 / 4453.542 930.000 / 930.000 Weight last 48 hrs Weight 122.515 kg Weight 123.559 kg Physical Exam 2 Narrative: General: No acute distress, AO x3 HEENT: PERRLA, pupils bilaterally equal and reactive, pallors not present Neuro: No focal deficits, no facial deformity, AO x3, power 5/5 in all limbs Extremities: Right elbow with surgical dressing and Markus bandage on top. Data 02/21/25 05:36 02/21/25 05:36 Micro: Microbiology 02/19/25 08:35 Gram Stain - Final Elbow - #1 Abscess Culture - Preliminary 02/19/25 08:35 Gram Stain - Final Elbow - #1 Tissue Culture - Preliminary 02/18/25 13:50 Gram Stain - Final Other Source Body Fluid Culture - Final NAME: Marc Skinner Niya LOC: [facility] #: [id number] AGE/SX: 49/M ROOM: 278 R E02/18/[address]: Joshua Hoffman MD : 1975 BED: 1 D IS: FAX #: STATUS: ADM IN TLOC: Spec #: [id number] Maurice: 02/19/25 Status: RES Req #: [id number] Recd: 02/19/[address]: Bola Mayfield DO Src: Elbow SpDesc: #1 Ordered: Tissue Cult GS Procedure Result Verified Site Gram Stain Final 02/19/25 Result RARE WHITE BLOOD CELLS NO ORGANISMS SEEN Tissue Culture Preliminary 02/21/25 NO GROWTH AT 36 HOURS Tissue Culture Preliminary (changed) 02/20/25 NO GROWTH AT 18-24 HOURS NAME: Marc Skinner Niya LOC: [facility] U #: [id number] AGE/SX: 49/M ROOM: 278 R E02/18/[address]: Joshua Hoffman MD : 1975 BED: 1 D IS: FAX #: STATUS: ADM IN TLOC: Spec #: [id number] Maurice: 02/19/25 Status: RES Req #: [id number] Recd: 02/19/[address]: Bola Mayfield DO Src: Elbow SpDesc: #1 Ordered: Absces Cult&GS Procedure Result Verified Site Gram Stain Final 02/19/25 Result FEW WHITE BLOOD CELLS NO ORGANISMS SEEN Abscess Culture Preliminary 02/21/25 NO GROWTH AT 36 HOURS Abscess Culture Preliminary (changed) 02/20/25 NO GROWTH AT 18-24 HOURS NAME: BrodyMarc Núñez LOC: [facility] U #: [id number] AGE/SX: 49/M ROOM: [facility] R E02/18/[address]: Joshua Hoffman MD : 1975 BED: 1 D IS: FAX #: STATUS: ADM IN TLOC: Spec #: [id number] Maurice: 02/18/25 Status: COMP Req #: [id number] Recd: 02/18/[address]: Ry Zarate MD Src: Other Sour SpDesc: Ordered: Body FL Cult&GS Comments: Comment R elbow Procedure Result Verified Site Gram Stain Final 02/18/25 Result MANY WHITE BLOOD CELLS RARE GRAM POSITIVE COCCI IN PAIRS Body Fluid Culture Final 02/21/25 NO GROWTH ON DAY 3 Body Fluid Culture Preliminary (changed) 02/20/25 NO GROWTH ON DAY 2 Body Fluid Culture Preliminary (changed) 02/19/25-1050 NO GROWTH AT 18-24 HOURS NAME: BrodyMarc Núñez LOC: [facility] U #: [id number] AGE/SX: 49/M ROOM: 278 R E02/18/[address]: Joshua Hoffman MD : 1975 BED: 1 D IS: FAX #: STATUS: ADM IN TLOC: Spec #: [id number] Maurice: 02/18/25 Status: RES Req #: [id number] Recd: 02/18/[address]: Nba Jorge DO Src: Blood SpDesc: Ordered: Bcult Procedure Result Verified Site Blood Culture Preliminary 02/19/25 NEGATIVE TO DATE Blood Culture Preliminary (changed) 02/18/25 SPECIMEN COLLECTED NAME: Marc Skinner LOC: [facility] U #: [id number] AGE/SX: 49/M ROOM: 278 R E02/18/[address]: Joshua Hoffman MD : 1975 BED: 1 D IS: FAX #: STATUS: ADM IN TLOC: Spec #: [id number] Maurice: 02/18/25-1004 Status: RES Req #: [id number] Recd: 02/18/[address]: Nba Jorge DO Src: Blood SpDesc: Ordered: Bcult Procedure Result Verified Site Blood Culture Preliminary 02/19/25 NEGATIVE TO DATE Blood Culture Preliminary (changed) 02/18/25 SPECIMEN COLLECTED NAME: Marc Skinner LOC: [facility] U #: [id number] AGE/SX: 49/M ROOM: 278 R E02/18/[address]: Joshua Hoffman MD : 1975 BED: 1 D IS: FAX #: STATUS: ADM IN TLOC: Spec : [id number] Maurice: 02/18/25 Status: COMP Req : [id number] Recd: 02/18/[address]: Ry Zarate MD Ordered: SYN Analysis Comments: Comment R elbow Test Low Normal High Flag Reference Site Syn Color PALE YELLOW PALE YELLOW Syn Appear TURBID CLEAR Syn WBC 64878 H 0-150 /uL Syn RBC 3 H 0-0 10^3/uL SYN [place] % 6.500 % SYN Poly % 93.500 % SYN [place]# 5.834 10^3/uL SYN Poly # 84.332 10^3/uL PATH YES Other data: Radiology Impressions Elbow X-Ray 02/17/25 23:47 IMPRESSION: Significant dorsal soft tissue swelling with very subtle osseous fragmentation at the tip of the olecranon. Injury to a small enthesophyte at this location can not be entirely excluded. Elbow MRI 02/18/25 01:24 IMPRESSION: 1. Large elbow joint effusion without enhancement. 2. Soft tissue enhancement along the posterior olecranon consistent with cellulitis. Olecranon bursitis may also be present. There is no well-formed fluid collection. 3. . Limited MRI evaluation of the elbow due artifact and difficulty positioning the patient. 4. No marrow edema or abnormal enhancement. Drainage Catheter Insertion 02/18/25 12:59 IMPRESSION: Uncomplicated RIGHT elbow joint effusion aspiration. Aspiration yielded 8 cc of yellow opaque fluid. Laboratory Results WBC 8.34 10^3/uL (3.29-11.43) 02/21/25 05:36 RBC 3.50 10^6/uL (3.85-5.65) L 02/21/25 05:36 Hgb 11.30 g/dL (11.27-16.99) 02/21/25 05:36 Hct 35.4 % (37-53) L 02/21/25 05:36 MCV 101.1 fl (82-101) H 02/21/25 05:36 MCH 32.3 pg (27-33) 02/21/25 05:36 MCHC 31.9 g/dL (30-55) 02/21/25 05:36 RDW 12.9 % (12.1-15.1) 02/21/25 05:36 Plt Count 268 10^3/cmm (157-399) 02/21/25 05:36 MPV 9.9 fL (7.4-10.4) 02/21/25 05:36 Neut % (Auto) 65.9 % 02/21/25 05:36 Lymph % (Auto) 22.5 % 02/21/25 05:36 [place]enton % (Auto) 9.6 % 02/21/25 05:36 Eos % (Auto) 1.1 % 02/21/25 05:36 Baso % (Auto) 0.7 % 02/21/25 05:36 Neut # (Auto) 5.49 10^3/uL (1.8-7.7) 02/21/25 05:36 Lymph # (Auto) 1.9 10^3/uL (0.8-4.8) 02/21/25 05:36 [place]enton # (Auto) 0.8 10^3/uL (0.2-0.9) 02/21/25 05:36 Eos # (Auto) 0.1 10^3/uL (0.0-0.8) 02/21/25 05:36 Baso # (Auto) 0.1 10^3/uL (0.0-0.1) 02/21/25 05:36 Nucleated RBC % (auto) 0 % 02/21/25 05:36 Nucleated RBCs # 0.0 /100WBC 02/21/25 05:36 ESR 10 mm/hr (0-10) 02/18/25 00:04 Sodium 136 mmol/L (136-145) 02/21/25 05:36 Potassium 3.8 mmol/L (3.5-5.1) 02/21/25 05:36 Chloride 100 mmol/L (98-107) 02/21/25 05:36 Carbon Dioxide 24 mmol/L (22-29) 02/21/25 05:36 Anion Gap 15.8 (5-19) 02/21/25 05:36 BUN 7 mg/dL (6-20) 02/21/25 05:36 Creatinine 0.6 mg/dL (0.7-1.2) L 02/21/25 05:36 GFR Calculation 143.8 mL/min (90-130) H 02/21/25 05:36 Glucose 100 mg/dL (65-115) 02/21/25 05:36 Estimat Average Glucose 94 02/18/25 00:04 Hemoglobin A1c 4.9 % (4.0-6.0) 02/18/25 00:04 Calculated Osmolality 280 mOsm/kg (285-295) L 02/21/25 05:36 Uric Acid 7.0 mg/dL (3.4-7.0) 02/18/25 00:04 Calcium 8.9 mg/dL (8.5-10.5) 02/21/25 05:36 Total Bilirubin 0.3 mg/dL (0.15-1.2) 02/21/25 05:36 AST 21 U/L (0-40) 02/21/25 05:36 ALT 23 U/L (0-41) 02/21/25 05:36 Alkaline Phosphatase 65 U/L (40-130) 02/21/25 05:36 C-Reactive Protein 63.8 mg/L (0.0-4.9) H 02/18/25 00:04 Total Protein 6.6 g/dL (6.6-8.7) 02/21/25 05:36 Albumin 3.4 g/dL (3.5-5.2) L 02/21/25 05:36 Globulin 3.2 g/dL (1.3-4.6) 02/21/25 05:36 Fluid Crystals Sent to path 02/18/25 13:50 Synovial Color Pale yellow (PALE YELLOW) 02/18/25 13:50 Synovial Appearance Turbid (CLEAR) 02/18/25 13:50 Synovial WBC 72509 /uL (0-150) H 02/18/25 13:50 Synovial RBC 3 10^3/uL (0-0) H 02/18/25 13:50 Synovial Mononuclear 5.834 10^3/uL 02/18/25 13:50 Synov Polynuclear WBCs 84.332 10^3/uL 02/18/25 13:50 Synovial Other Cells Not Reportable 02/18/25 13:50 Synovial Polynuclear % 93.500 % 02/18/25 13:50 Synovial Mononuclear % 6.500 % 02/18/25 13:50 Vancomycin Trough 14.3 ug/mL (10-15) 02/20/25 11:07 C. trachomatis (PCR) Not detected 02/18/25 20:51 N. 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 Synovial fluid aspirate revealing 90,000 WBCs with 93% PMNs highly suspicious of a septic joint. Intraoperative findings from the I&D with pus encountered from the ulnohumeral and radiohumeral joints. Clinically appears patient may have septic arthritis complicating a tophaceous gout. Chronic swelling may be tophaceous deposit, currently complicated by an infective process. Blood cultures remain negative to date There is no history of IV drug use From February 18, 2025, synovial fluid aspirate showing GPC in pairs on the Gram stain, however there is no growth on cultures Operating room cultures remaining negative to date Grossly fluid analysis is currently pending Will treat this as culture-negative septic arthritis. Discontinue Zosyn. Can change to ceftriaxone 2 g IV every 24 hours Continue IV vancomycin. Recommend discharge on ceftriaxone 2 g IV every 24 hours and vancomycin 1500 mg IV every 12 hours, goal vancomycin trough to be 15-20. Recommend duration of treatment to be 4 weeks (February 19, 2025-March 19, 2025) PICC line to facilitate above Weekly CBC, creatinine, LFT, CRP and vancomycin trough to be obtained via home health and faxed to infectious disease clinic for review. Discussed above care plan with patient and potential side effects of antibiotics including but not limited to development of antibiotic associated diarrhea, C. difficile colitis, cholestasis, bone marrow suppression, potential renal and hepatotoxicity. Patient understands risks and benefits and agreeable to proceeding with prolonged course of IV antibiotics. Follow-up in ID clinic on March 15, 2025 Thank you for this consult, please call with any further questions or clinical updates. PDMP PDMP Reviewed: Not Reviewed Consult Attestations 2 Medical Necessity Statement: Per admitting Coding Level of Care Code Acute Code for Chg Fwd High MDM includes number and complexity of problems actively addressed during encounter, amount and/or complexity of data reviewed/ordered and described risk of complication, morbidity or mortality of management as documented Diagnoses Septic arthritis M00.9 Tophaceous gout M1A.9XX1
[2025-02-21 15:48] VITALS: BP 150/90; PULSE 75; RESP 18; TEMP 36.8; O2SAT 99
--- NOTE | 2025-02-21 15:54 | P.PN_ITS ---
Subjective 2 Subjective: Patient was seen this morning, currently alert oriented x 3, following all commands, denies any fevers, no chills, no cough Vitals/I&O/Wt Last Vital Signs Temp 98.2 F 02/21/25 15:48 Pulse 75 02/21/25 15:48 Resp 18 02/21/25 15:48 BP 150/90 02/21/25 15:48 Pulse Ox 99 02/21/25 15:48 O2 Del Method Room Air 02/21/25 15:48 O2 Flow Rate 3 02/19/25 10:06 02/21/25 02/21/25 02/21/25 06:59 14:59 22:59 Intake Total 2213.542 / 4453.542 930.000 / 930.000 Balance 2213.542 / 4453.542 930.000 / 930.000 Weight last 48 hrs Weight 122.515 kg Weight 123.559 kg Physical Exam 2 Const: COMMON NORMALS: no acute distress and patient oriented x3 Resp: COMMON NORMALS: normal respiratory effort, No retractions, No use of accessory muscles and clear to auscultation bilaterally AUSCULTATION: clear to auscultation bilaterally Cardio: COMMON NORMALS: regular rate, regular rhythm, S1 normal heart sound present and S2 normal heart sound present RATE: regular rate RHYTHM: r egular rhythm HEART SOUNDS: S1 normal heart sound present and S2 normal heart sound present GI: COMMON NORMALS: Normal to inspection, nondistended, normoactive bowel sounds present and non-tender Extremity: COMMON NORMALS: no pedal edema Neuro: COMMON NORMALS: patient oriented x3 Psych: COMMON NORMALS: mental status grossly normal Data 02/21/25 05:36 02/21/25 05:36 Micro: Microbiology 02/19/25 08:35 Gram Stain - Final Elbow - #1 Abscess Culture - Preliminary 02/19/25 08:35 Gram Stain - Final Elbow - #1 Tissue Culture - Preliminary 02/18/25 13:50 Gram Stain - Final Other Source Body Fluid Culture - Final A&P Assessment and plan (1) Pain and swelling of right elbow: - Concerns for septic joint - Gout also possibility Elbow MRI - MR/MR elbow RT wo/w con [id number] IMPRESSION: 1. Large elbow joint effusion without enhancement. 2. Soft tissue enhancement along the posterior olecranon consistent with cellulitis. Olecranon bursitis may also be present. There is no well-formed fluid collection. 3. . Limited MRI evaluation of the elbow due artifact and difficulty positioning the patient. 4. No marrow edema or abnormal enhancement. - Status post ultrasound-guided aspiration, 8 cc of yellow opaque fluid removed - Fluid pale, yellow, turbid, 90,000 white blood cells, 93.5% PMN cells - Aspiration cultures have no growth - However Gram stain does show many white blood cells, rare gram-positive cocci in pairs - Patient is status post irrigation and debridement of right elbow and excision of right elbow bursa by Dr. Mayfield, Plan - Follow surgical cultures - Follow aspiration cultures - Follow blood cultures -Reordered crystal fluid analysis - Continue vancomycin - De-escalate to Rocephin - Continue hydrocodone for pain - Full code - Lovenox for DVT prophylaxis (2) Septic joint of right elbow: Plan Gout: -Uric acid 7 - Continue allopurinol - Hold colchicine as there is concerns for active infection HTN: Continue amlodipine. Chronic back pain : Chronic back pain due to degenerative disc disease, history of lumbar and cervical spine surgeries. PDMP PDMP Reviewed: Last Reviewed 02/20/25 11:07 by Joshua Hoffman MD Attestations 2 Medical Necessity Statement*: Patient requires hospitalization for septic arthritis Diagnoses Pain and swelling of right elbow M25.521; M25.421 Septic joint of right elbow M00.9
[2025-02-21 20:00] VITALS: BP 155/98; PULSE 83; RESP 17; TEMP 36.8; O2SAT 98
[2025-02-22] VITALS: BP 147/84; PULSE 71; RESP 16; TEMP 36.8; O2SAT 99
[2025-02-22] MEDS: HYDROmorphone 0.5 MG/0.5 ML INJ IVP (00:04)
[2025-02-22] MEDS: vancomycin 1,500 MG/300 ML PIGGYBACK 200 MG IV ×2 (00:05→08:40)
[2025-02-22] MEDS: ketorolac 30 mg/mL INJ IVP ×3 (00:05→12:05)
[2025-02-22 04:00] VITALS: BP 158/103; PULSE 70; RESP 17; TEMP 36.7; O2SAT 97
[2025-02-22] MEDS: cefTRIAXone 2,000 mg SDV 2000 MG IVP (05:38)
[2025-02-22 06:12] LABS: Basophils # 0.1 10^3/uL (0.0-0.1); Basophils % 1.1 %; Eosinophils # 0.2 10^3/uL (0.0-0.8); Eosinophils % 2.6 %; Hematocrit 34.7 % (37-53); Lymphocytes # 1.5 10^3/uL (0.8-4.8); Lymphocytes % 21.8 %; Mean Corpuscular HGB Conc 32.3 g/dL (30-55); Mean Corpuscular Hemoglobin 32.3 pg (27-33); Mean Platelet Volume 9.6 fL (7.4-10.4); Monocytes # 0.8 10^3/uL (0.2-0.9); Monocytes % 11.4 %; Neutrophils # 4.39 10^3/uL (1.8-7.7); Neutrophils % 62.7 %; Nucleated Red Blood Cells % 0 %; Platelet Count 270 10^3/cmm (157-399); Red Blood Count 3.47 10^6/uL (3.85-5.65); Red Cell Distribution Width 12.9 % (12.1-15.1); White Blood Count 7.01 10^3/uL (3.29-11.43)
[2025-02-22] MEDS: HYDROcodone-acetaminophen 10-325 mg Tablet 1 TAB PO ×2 (06:24→12:05)
[2025-02-22 07:07] LABS: Blood Urea Nitrogen 9 mg/dL (6-20); Carbon Dioxide 25 mmol/L (22-29); Chloride 100 mmol/L (98-107); Creatinine Clr Calc Pharmacy 244.1782; Glomerular Filtration Rate 177.5 mL/min (90-130); Glucose 109 mg/dL (65-115); Osmolality Calculated 283 mOsm/kg (285-295); Sodium 137 mmol/L (136-145)
[2025-02-22 07:33] VITALS: BP 127/85; PULSE 63; RESP 16; TEMP 36.7; O2SAT 95
[2025-02-22] MEDS: amlodipine 10 mg Tablet PO (08:40)
[2025-02-22] MEDS: allopurinol 100 mg Tablet 200 MG PO (08:40)
[2025-02-22] MEDS: linezolid 600 mg Tablet PO ×2 (11:51)
--- NOTE | 2025-02-22 11:56 | P.DS_ITS ---
Discharge Providers Date of Admission: 02/18/25 12:53 Date of Discharge: February 22, 2025 Attending Provider at Admission: Ry Zarate Attending Provider at Discharge: Joshua Hoffman MD Primary Care Provider: Lynn Iqbal MD Diagnoses at Discharge Discharge Diagnosis (1) Pain and swelling of right elbow: Status: Acute (2) Septic joint of right elbow: Status: Acute Reason for Visit Reason for Visit: right elbow swollen injured Hospital Course Hospital Course This is a 49-year-old male with past medical history of gout, hypertension, chronic cervical neck disease, chronic back pain, who presents to [facility] due to right elbow swelling Patient was admitted to [facility] for right elbow septic arthritis: Elbow MRI - MR/MR elbow RT wo/w con [id number] IMPRESSION: 1. Large elbow joint effusion without enhancement. 2. Soft tissue enhancement along the posterior olecranon consistent with cellulitis. Olecranon bursitis may also be present. There is no well-formed fluid collection. 3. . Limited MRI evaluation of the elbow due artifact and difficulty positioning the patient. 4. No marrow edema or abnormal enhancement. - Status post ultrasound-guided aspiration, 8 cc of yellow opaque fluid removed - Fluid pale, yellow, turbid, 90,000 white blood cells, 93.5% PMN cells - Aspiration cultures have no growth - However Gram stain does show many white blood cells, rare gram-positive cocci in pairs - Patient is status post irrigation and debridement of right elbow and excision of right elbow bursa by Dr. Mayfield, - So far cultures no growth - Remains afebrile - For his septic arthritis and bursitis - Patient will be discharged on 4 weeks - Vancomycin 1500 mg every 12 hours stop date March 19, 2024 - Rocephin 2 g IV every 24 hours stop date March 19, 2024 - Follow-up with Dr. Pa - Follow-up with Dr. Mayfield - Nonweightbearing right upper extremity - If any fevers or chills or increased joint swelling go to the emergency room Physical Exam Const: COMMON NORMALS: no acute distress and patient oriented x3 Resp: COMMON NORMALS: normal respiratory effort, No retractions, No use of accessory muscles and clear to auscultation bilaterally AUSCULTATION: clear to auscultation bilaterally Cardio: COMMON NORMALS: regular rate, regular rhythm, S1 normal heart sound present and S2 normal heart sound present RATE: regular rate RHYTHM: regular rhythm HEART SOUNDS: S1 normal heart sound present and S2 normal heart sound present GI: COMMON NORMALS: Normal to inspection, nondistended, normoactive bowel sounds present and non-tender Extremity: COMMON NORMALS: no pedal edema NARRATIVE EXTREMITY EXAM: Right upper extremity is wrapped Neuro: COMMON NORMALS: patient oriented x3 Psych: COMMON NORMALS: mental status grossly normal Discharge Data Studies Completed and Pending Completed Studies During Hospitalization Category Date Time Status CXRP [XR chest 1V portable [id number]] Routine Exams 02/21/25 11:20 Completed XR elbow RT min 3V* [id number] Stat Exams 02/17/25 23:47 Completed MR elbow RT wo/w con [id number] Stat MRI 02/18/25 01:24 Completed US guide soft tissue fluid drain by cath [US softtissue Ultrasound 02/18/25 12:[address] cath [id number]] Stat Pending at discharge Category Date Time Status Basic Metabolic Panel AM LABS Lab 02/23/25 04:00 Ordered Basic Metabolic Panel AM LABS Lab 02/24/25 04:00 Ordered Blood Culture Stat Lab 02/18/25 10:05 Results Complete Blood Count w/Auto AM LABS Lab 02/23/25 04:00 Ordered Complete Blood Count w/Auto AM LABS Lab 02/24/25 04:00 Ordered Vancomycin Trough Timed Lab 02/23/25 06:30 Ordered Radiology Impressions Elbow X-Ray 02/17/25 23:47 IMPRESSION: Significant dorsal soft tissue swelling with very subtle osseous fragmentation at the tip of the olecranon. Injury to a small enthesophyte at this location can not be entirely excluded. Elbow MRI 02/18/25 01:24 IMPRESSION: 1. Large elbow joint effusion without enhancement. 2. Soft tissue enhancement along the posterior olecranon consistent with cellulitis. Olecranon bursitis may also be present. There is no well-formed fluid collection. 3. . Limited MRI evaluation of the elbow due artifact and difficulty positioning the patient. 4. No marrow edema or abnormal enhancement. Drainage Catheter Insertion 02/18/25 12:59 IMPRESSION: Uncomplicated RIGHT elbow joint effusion aspiration. Aspiration yielded 8 cc of yellow opaque fluid. Laboratory Results WBC 7.01 10^3/uL (3.29-11.43) 02/22/25 05:37 RBC 3.47 10^6/uL (3.85-5.65) L 02/22/25 05:37 Hgb 11.20 g/dL (11.27-16.99) L 02/22/25 05:37 Hct 34.7 % (37-53) L 02/22/25 05:37 MCV 100.0 fl (82-101) 02/22/25 05:37 MCH 32.3 pg (27-33) 02/22/25 05:37 MCHC 32.3 g/dL (30-55) 02/22/25 05:37 RDW 12.9 % (12.1-15.1) 02/22/25 05:37 Plt Count 270 10^3/cmm (157-399) 02/22/25 05:37 MPV 9.6 fL (7.4-10.4) 02/22/25 05:37 Neut % (Auto) 62.7 % 02/22/25 05:37 Lymph % (Auto) 21.8 % 02/22/25 05:37 [place] % (Auto) 11.4 % 02/22/25 05:37 Eos % (Auto) 2.6 % 02/22/25 05:37 Baso % (Auto) 1.1 % 02/22/25 05:37 Neut # (Auto) 4.39 10^3/uL (1.8-7.7) 02/22/25 05:37 Lymph # (Auto) 1.5 10^3/uL (0.8-4.8) 02/22/25 05:37 [place] # (Auto) 0.8 10^3/uL (0.2-0.9) 02/22/25 05:37 Eos # (Auto) 0.2 10^3/uL (0.0-0.8) 02/22/25 05:37 Baso # (Auto) 0.1 10^3/uL (0.0-0.1) 02/22/25 05:37 Nucleated RBC % (auto) 0 % 02/22/25 05:37 Nucleated RBCs # 0.0 /100WBC 02/22/25 05:37 ESR 10 mm/hr (0-10) 02/18/25 00:04 Sodium 137 mmol/L (136-145) 02/22/25 06:40 Potassium 4.0 mmol/L (3.5-5.1) 02/22/25 06:40 Chloride 100 mmol/L (98-107) 02/22/25 06:40 Carbon Dioxide 25 mmol/L (22-29) 02/22/25 06:40 Anion Gap 16.0 (5-19) 02/22/25 06:40 BUN 9 mg/dL (6-20) 02/22/25 06:40 Creatinine 0.5 mg/dL (0.7-1.2) L 02/22/25 06:40 GFR Calculation 177.5 mL/min (90-130) H 02/22/25 06:40 Glucose 109 mg/dL (65-115) 02/22/25 06:40 Estimat Average Glucose 94 02/18/25 00:04 Hemoglobin A1c 4.9 % (4.0-6.0) 02/18/25 00:04 Calculated Osmolality 283 mOsm/kg (285-295) L 02/22/25 06:40 Uric Acid 7.0 mg/dL (3.4-7.0) 02/18/25 00:04 Calcium 9.0 mg/dL (8.5-10.5) 02/22/25 06:40 Total Bilirubin 0.3 mg/dL (0.15-1.2) 02/21/25 05:36 AST 21 U/L (0-40) 02/21/25 05:36 ALT 23 U/L (0-41) 02/21/25 05:36 Alkaline Phosphatase 65 U/L (40-130) 02/21/25 05:36 C-Reactive Protein 63.8 mg/L (0.0-4.9) H 02/18/25 00:04 Total Protein 6.6 g/dL (6.6-8.7) 02/21/25 05:36 Albumin 3.4 g/dL (3.5-5.2) L 02/21/25 05:36 Globulin 3.2 g/dL (1.3-4.6) 02/21/25 05:36 Fluid Crystals Sent to path 02/18/25 13:50 Synovial Color Pale yellow (PALE YELLOW) 02/18/25 13:50 Synovial Appearance Turbid (CLEAR) 02/18/25 13:50 Synovial WBC 78248 /uL (0-150) H 02/18/25 13:50 Synovial RBC 3 10^3/uL (0-0) H 02/18/25 13:50 Synovial Mononuclear 5.834 10^3/uL 02/18/25 13:50 Synov Polynuclear WBCs 84.332 10^3/uL 02/18/25 13:50 Synovial Other Cells Not Reportable 02/18/25 13:50 Synovial Polynuclear % 93.500 % 02/18/25 13:50 Synovial Mononuclear % 6.500 % 02/18/25 13:50 Vancomycin Trough 14.3 ug/mL (10-15) 02/20/25 11:07 C. trachomatis (PCR) Not detected 02/18/25 20:51 N. gonorrhoeae (PCR) Not detected 02/18/25 20:51 Path Cons w/Slide Yes 02/18/25 13:50 Vitals Last Vital Signs Temp 98.1 F 02/22/25 07:33 Pulse 63 02/22/25 07:33 Resp 16 02/22/25 07:33 BP 127/85 02/22/25 07:33 Pulse Ox 95 02/22/25 07:33 O2 Del Method Room Air 02/22/25 07:33 O2 Flow Rate 3 02/19/25 10:06 Discharge Plan Discharge Patient Disposition: Home Health Service Condition: Stable Prescriptions: New ceftriaxone 2 gram Recon Soln 2,000 mg IVP Q24H 28 Days Qty: 25 0RF Rx Instructions: stop date march 19 2025 hydrocodone-acetaminophen 10-325 mg Tablet 1 tab PO Q6H PRN (Reason: Moderate Pain) 5 Days Qty: 20 0RF vancomycin 1.5 gram recon soln 1.5 g IV Q12H 28 Days Rx Instructions: stop date march 19 2025 Continued amlodipine 10 mg Tablet 10 mg PO DAILY allopurinol 100 mg tablet 200 mg PO DAILY Held colchicine [Colcrys] 0.6 mg tablet See Rx Instructions .ROUTE .COMPLEX Qty: 30 1RF Hold Instructions: Resume on 03/29/25. Rx Instructions: 2 pills at once, then another pill 1 hour later. Repeat the same dosing at the earliest signs of flare-up Discontinued naproxen [Naprosyn] 500 mg tablet 500 mg PO BID 7 Days Qty: 90 1RF Discharge Orders: Discharge Order (Routine); Ordered 02/22/25 Ordered By: Joshua Hoffman Referrals: [facility] [Provider Group, Infectious Disease] - 03/15/25 2:00 pm [facility] [Outside] Referral Note: This is the pharmacy company supplying your IV antibiotics. [facility] ([facility]) [Outside] Referral Note: This is the HH company that will be coming to do your labs and PICC line dressing change. Lynn Iqbal MD [Primary Care Provider, [facility]] Referral Note: We have notified your physician's clinic of the need for a follow-up appointment to be scheduled. If you have not heard from them within the next 2 business days, please call them directly. Bola Mayfield DO [Physician, Orthopedics] - 03/08/25 8:00 am Discharge Diet: Cardiac Discharge Activity: Resume usual activity Patient Instructions: Hydrocodone/Acetaminophen (By mouth), Ceftriaxone (By injection), Vancomycin (By injection), PICC (Peripherally Inserted Central Catheter) (GEN), Opioid Safety, Patient Portal & [facility] Instructions Activity Restrictions/Additional Instructions: Do not lift more than 10 pounds with right upper extremity Change dressing as needed Follow-up in orthopedic clinic in 2 weeks. Please use hydrocodone sparingly for pain, do not drive or operate heavy machinery or drink while taking medication Discharge Attestations Time Spent in Discharge Care*: greater than 30 min Quality Metrics Clinical Quality Measures [ No reported AMI, CVA or VTE this stay] Coding Level of Care Code 40325 Total time (in minutes) for Discharge: 45 Diagnoses Pain and swelling of right elbow M25.521; M25.421 Septic joint of right elbow M00.9
== END 2025-02-22 12:20 | disposition home health service (06) | DRG 501 ==
LOC: ER 02-18 06:11 → MEDSURG 02-18 12:54
PROVIDERS: Nurse Practitioner; Orthopaedic Surgery; Admitting Provider Internal Medicine; Emergency Provider Family Medicine; PCP Family Medicine; Visit Provider Family Medicine
PROC: 0MB30ZZ Excision of Right Elbow Bursa and Ligament, Open Approach (ICD-10-PCS; principal; 2025-02-19 08:00)
DX: M00.9 Pyogenic arthritis, unspecified (principal); L03.113 Cellulitis of right upper limb; I10 Essential (primary) hypertension; G89.29 Other chronic pain; M54.9 Dorsalgia, unspecified; M50.30 Other cervical disc degeneration, unspecified cervical region; M71.521 Other bursitis, not elsewhere classified, right elbow; M1A.0211 Idiopathic chronic gout, right elbow, with tophus (tophi); Z79.899 Other long term (current) drug therapy; Z79.52 Long term (current) use of systemic steroids
CPT/HCPCS: 10030; 36415; 36573; 36592; 71045; 73080; 73223; 80048; 80053; 80202; 80503; 83036; 84550; 85025; 85651; 86140; 87040; 87070; 87075; 87176; 87205; 87491; 87591; 89050; 96365; 96375; 99285; J0131; J0690; J0696; J1100; J1171; J1885; J2020; J2250; J2405; J2543; J2704; J3010; J3370; J7030; J9999; Q0162

== ENCOUNTER 2025-02-28 15:34 | Outpatient (CLI) | payer OTHER, SELFPAY ==
[2025-02-28 15:59] LABS: Basophils # 0.1 10^3/uL (0.0-0.1); Basophils % 1.2 %; Eosinophils # 0.4 10^3/uL (0.0-0.8); Eosinophils % 4.9 %; Hematocrit 38.4 % (37-53); Lymphocytes # 1.5 10^3/uL (0.8-4.8); Lymphocytes % 19.9 %; Mean Corpuscular HGB Conc 33.1 g/dL (30-55); Mean Corpuscular Hemoglobin 32.2 pg (27-33); Mean Corpuscular Volume 97.5 fl (82-101); Monocytes # 0.5 10^3/uL (0.2-0.9); Monocytes % 6.8 %; Neutrophils # 5.03 10^3/uL (1.8-7.7); Neutrophils % 66.7 %; Nucleated Red Blood Cells % 0 %; Platelet Count 314 10^3/cmm (157-399); Red Blood Count 3.94 10^6/uL (3.85-5.65); White Blood Count 7.54 10^3/uL (3.29-11.43)
== END 2025-02-28 15:35 | disposition home or self-care (01) ==
LOC: LAB 15:36
PROVIDERS: PCP Family Medicine; Visit Provider Student in an Organized Health Care Education/Training Program
DX: M71.121 Other infective bursitis, right elbow (principal)
CPT/HCPCS: 85025

== ENCOUNTER → 2025-03-02 09:32 | Outpatient (BNVA) | payer OTHER, SELFPAY | PROVIDERS: PCP Family Medicine; Visit Provider Student in an Organized Health Care Education/Training Program | DX: Z79.2 Long term (current) use of antibiotics (principal) | CPT/HCPCS: 80076; 80202; 82565; 86140 ==

== ENCOUNTER → 2025-03-08 07:40 | Outpatient (BNVA) | payer OTHER, SELFPAY | PROVIDERS: PCP Family Medicine; Visit Provider Orthopaedic Surgery | DX: Z98.890 Other specified postprocedural states (principal); Z48.89 Encounter for other specified surgical aftercare | CPT/HCPCS: 99024 ==

== ENCOUNTER 2025-03-10 15:20 | Outpatient (CLI) | payer OTHER, SELFPAY ==
[2025-03-10 15:43] LABS: Hematocrit 46.4 % (37-53); Hemoglobin 15.40 g/dL (11.27-16.99); Mean Corpuscular HGB Conc 33.2 g/dL (30-55); Mean Corpuscular Hemoglobin 30.9 pg (27-33); Mean Corpuscular Volume 93.0 fl (82-101); Nucleated Red Blood Cells % 0 %; Platelet Count 359 10^3/cmm (157-399); Red Blood Count 4.99 10^6/uL (3.85-5.65); White Blood Count 8.30 10^3/uL (3.29-11.43)
[2025-03-10 16:30] LABS: Alanine Aminotransferase 40 U/L (0-41); Albumin Level 4.3 g/dL (3.5-5.2); Alkaline Phosphatase 106 U/L (40-130); Aspartate Amino Transferase 36 U/L (0-40); Globulin 3.4 g/dL (1.3-4.6); Total Protein 7.7 g/dL (6.6-8.7)
== END 2025-03-10 15:21 | disposition home or self-care (01) ==
LOC: LAB 15:24
PROVIDERS: PCP Family Medicine; Visit Provider Student in an Organized Health Care Education/Training Program
DX: M71.121 Other infective bursitis, right elbow (principal)
CPT/HCPCS: 80076; 80202; 82565; 85025; 86140

== ENCOUNTER → 2025-03-15 10:00 | Outpatient (BNVA) | payer OTHER, SELFPAY | PROVIDERS: PCP Family Medicine; Visit Provider Student in an Organized Health Care Education/Training Program | DX: Z79.2 Long term (current) use of antibiotics (principal) | CPT/HCPCS: 80076; 80202; 82565; 85025; 86140 ==

== ENCOUNTER → 2025-03-24 07:58 | Outpatient (BNVA) | payer OTHER, SELFPAY | PROVIDERS: PCP Family Medicine; Visit Provider Orthopaedic Surgery | DX: Z98.890 Other specified postprocedural states (principal); Z48.89 Encounter for other specified surgical aftercare | CPT/HCPCS: 99024 ==

== ENCOUNTER → 2025-04-05 08:25 | Outpatient (BNVA) | payer OTHER, SELFPAY | PROVIDERS: PCP Family Medicine; Visit Provider Orthopaedic Surgery | DX: Z98.890 Other specified postprocedural states (principal) | CPT/HCPCS: 99024 ==

== ENCOUNTER 2025-04-23 08:07 | Emergency (ER) | payer OTHER, SELFPAY ==
[2025-04-23 08:13] VITALS: BP 175/120; PULSE 82; RESP 18; TEMP 36.7; O2SAT 100
--- NOTE | 2025-04-23 08:15 | XRR_ITS ---
PROCEDURE INFORMATION: Exam: XR Right Knee Exam date and time: 04/23/2025 8:16 AM Age: 49 years old Clinical indication: Pain; Knee; Right; Additional info: Knee pain and swelling. No history of recent trauma or surgery is provided. TECHNIQUE: Imaging protocol: Radiologic exam of the right knee. 3image(s) are provided. Views: 3 views. COMPARISON: No previous right knee radiograph is currently available. Lt knee report 01/13/2023. FINDINGS: Bones/joints: There appears to be a moderate to large amount of joint fluid present.Osseous alignment is maintained. No displaced fracture or dislocation is appreciated. There appears to be some mild multi compartmental degeneration with subtle spurring and narrowing. There appear to be some faint chondrocalcinosis type changes. Soft tissues: No radiopaque foreign body or subcutaneous emphysema is appreciated. There appears to be subtle prominence of the soft tissues overall. XR/XR knee RT 3V* [id number] IMPRESSION: There is a fjgytaab-ul-rjjla amount of joint fluid present with no fracture or dislocation appreciated. If there is persistent pain and swelling with limited range of motion then consider MRI.
[2025-04-23 08:20] VITALS: O2SAT 100
--- OUTSIDE RECORDS SUMMARY | 2025-04-23 08:20 | XMS_ITS | Encounter Summary ---
Author Organization [facility] Address [address] [place] [address] Care Team Providers Care Mine Laborer Name Role Phone Unavailable Primary Care Provider Unavailabl e Encounter Details Date Type Department Care Team (Late st Contact Info) Description 04/30/2009 Emergency [facility] [address] 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
--- OUTSIDE RECORDS SUMMARY | 2025-04-23 08:20 | XMS_ITS | Clinical Summary ---
Author Organization [facility] Address [address] [place] [address] Care Team Providers Care Professor Of Nursing Name Role Phone Unavailable Primary Care Provider Unavailabl e Allergies No known active allergies Medications cyclobenzaprine (FLEXERIL) 10 mg tablet Take 1 Tablet (10 mg) by mouth 3 times daily as needed for Spasm. 90 Tablet 1 01/13/2017 Active Active Problems Problem Noted Date Diagnosed Date Neck pain on right side 01/05/2017 History of cervical spinal surgery 01/05/2017 Chewing tobacco dependence 08/20/2016 Family History Medical History Relation Name Comments Healthy Father Hypertension Mother Relation Name Status Comments Father Alive Mother Alive Social History Tobacco Use Types Packs/Day Years Used Date Smoking Tobacco: Never Smokeless Tobacco: Former Snuff Tobacco Cessation:Counseling Given: No Alcohol Use Standard Drinks/Week Comments Yes 0 (1 standard drink = 0.6 oz pur e alcohol) Sex and Gender Information Value Date Recorded Sex Assigned at Not on file 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 Gender Identity Not on file Sexual Orientation Not on file Last Filed Vital Signs Vital Sign Reading Time Taken Comments Blood Pressure 148/95 04/25/2017 10:16 AM CDT Pulse 73 04/25/2017 10:16 AM CDT Temperature 35.8 C (96.5 F) 01/13/2017 8:13 AM CDT Respiratory Rate 20 01/13/2017 8:13 AM CDT Oxygen Saturation 95% 01/13/2017 8:13 AM CDT Inhaled Oxygen Concentration - - Weight 128.4 kg (283 lb) 04/25/2017 10:16 AM CDT Height 180.3 cm (5' 11 ) 04/25/2017 10:16 AM CDT Body Mass Index 39.47 04/25/2017 10:16 AM CDT Plan of Treatment Health Maintenance Due Date Last Done Comments DTAP/TDAP/TD VACCINES (1 - Tdap) 11/25/1995 HEPATITIS B VACCINES (1 of 3 - 19+ 3-dose series) 10/31 COLORECTAL SCREENING 2021 Colorectal Cancer Screening 2021 FIT-DNA Q 3 years 2021 FIT/FOBT Q 1 year 2021 Flex Sig/CT Colonography Q 5 years 2021 INFLUENZA VACCINE (#1) 2025
--- OUTSIDE RECORDS SUMMARY | 2025-04-23 08:20 | XMS_ITS | Clinical Summary ---
Author Organization [facility] Address [address] [facility] Attn: Epic Prelude ADT [place] [address] Care Team Providers Care Plasterer Spot Name Role Phone Unavailable Primary Care Provider Unavailabl e Allergies No known active allergies Medications cyclobenzaprine (FLEXERIL) 10 mg tablet Take 1 Tablet (10 mg) by mouth 3 times daily as needed for Spasm. 90 Tablet 1 01/13/2017 Active Active Problems Problem Noted Date Diagnosed Date History of cervical spinal surgery 01/05/2017 Neck pain on right side 01/05/2017 Chewing tobacco dependence 08/20/2016 Family History Medical History Relation Name Comments Healthy Father Hypertension Mother Relation Name Status Comments Father Alive Mother Alive Social History Tobacco Use Types Packs/Day Years Used Date Smoking Tobacco: Never Smokeless Tobacco: Former Alcohol Use Standard Drinks/Week Comments Yes 0 (1 standard drink = 0.6 oz pur e alcohol) Sex and Gender Information Value Date Recorded Sex Assigned at Not on file 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
[2025-04-23 08:53] LABS: Hematocrit 46.8 % (37-53); Hemoglobin 15.60 g/dL (11.27-16.99); Mean Corpuscular HGB Conc 33.3 g/dL (30-55); Mean Corpuscular Hemoglobin 29.9 pg (27-33); Mean Corpuscular Volume 89.8 fl (82-101); Nucleated Red Blood Cells % 0 %; Platelet Count 271 10^3/cmm (157-399); Red Blood Count 5.21 10^6/uL (3.85-5.65); White Blood Count 8.05 10^3/uL (3.29-11.43)
[2025-04-23] MEDS: methylPREDNISolone sod succ 125 mg/2 mL INJ IVP (09:21)
[2025-04-23 09:28] VITALS: BP 147/94; PULSE 81; RESP 16; O2SAT 98
--- NOTE | 2025-04-23 09:47 | ED_ITS ---
HPI - Extremity Problem 2 General: Chief complaint: Extremity Problem,Nontraumatic Stated complaint: R knee swollon going to calf Time Seen by Provider: 04/23/25 08:15 History of Present Illness: 49-year-old male presents emergency room complaining of right knee pain. No fall or injury. He has some swelling in the knee itself is pain that goes into the calf. No swelling of the calf or the thigh. Moderate knee effusion noted on visual exam. He has not had any fever sweats chills chest pain or shortness of breath Associated symptoms: Deny chest pain, fever(s) or rash Related Data Home Medications ?Medication ?Instructions ?Recorded ?Confirmed allopurinol 100 mg tablet 200 mg PO DAILY 07/04/23 amlodipine 10 mg tablet 10 mg PO DAILY 02/18/2504/02 naproxen 500 mg tablet 500 mg PO BID PRN inflammati on and 04/23/25 04/23/25 pain Previous Rx's ?Medication ?Instructions ?Recorded colchicine 0.6 mg tablet (Colcrys) See Rx Instructions .Route 08/11/24 Held on 02/22/25. .COMPLEX #30 tabs Instructions: Resume on 03/29/25. indomethacin 50 mg capsule 50 mg PO TID #20 caps 04/23 prednisone 20 mg tablet 20 mg PO TID #15 tabs Allergies Allergy/AdvReac Type Severity Reaction Status Date / Time No Known Allergies Allergy Verified 04/05/25 08:33 Review of Systems 2 Const: Denies: fever(s) or chills Card: Denies: chest pain Resp: Denies: dyspnea GI: Denies: abdominal pain : Denies: dysuria, urinary frequency or urinary urgency Musc: Reports: joint pain and joint swelling; Denies: neck pain or back pain Skin/Breast: Denies: rash PFSH ED 2 PFSH: Medical History Gout HTN (hypertension) Cervical disc disease Back pain Surgical History History of lumbar surgery History of testicular surgery H/O hand surgery History of ankle surgery H/O cervical discectomy Social History Smoking and tobacco/nicotine status: unknown if used tobacco/nicotine Alcohol intake: current Alcohol intake frequency: holidays/special occasions only Substance/Drug Use: never Physical Exam 2 Const: GENERAL APPEARANCE: cooperative ORIENTATION/CONSCIOUSNESS: Yes awake, Yes oriented to person, Yes oriented to place and Yes oriented to time HENMT: COMMON NORMALS: normocephalic, atraumatic and hearing grossly normal bilaterally HEAD & SCALP: normocephalic and atraumatic Resp: COMMON NORMALS: normal respiratory effort, No retractions, No use of accessory muscles and clear to auscultation bilaterally AUSCULTATION: clear to auscultation bilaterally Cardio: COMMON NORMALS: regular rate, regular rhythm and No murmurs present (Cardio) RATE: regular rate RHYTHM: regular rhythm Extremity: COMMON NORMALS: normal to inspection, capillary refill normal, no clubbing, cyanosis or edema, no calf tenderness and no pedal edema OTHER: Examination of the right knee moderate warmth to touch no induration exquisitely tender with any touch or attempted range of motion. No calf tenderness or swelling Neuro: SENSORIUM/ORIENTATION: Yes oriented to person, Yes oriented to place and Yes oriented to time Skin: COMMON NORMALS: no rashes or lesions noted GENERAL SKIN EXAM: no rashes or lesions noted Course 2 Vital Signs: Vital signs: Vital Signs Temperature 98.1 F 04/23/25 08:13 Pulse Rate 83 04/23/25 09:54 Respiratory Rate 16 04/23/25 09:54 Blood Pressure 147/94 04/23/25 09:54 Pulse Oximetry 98 04/23/25 09:54 Oxygen Delivery Me thod Room Air 04/23/25 09:28 MDM - Extremity (Nontraumatic) Medical Decision Making X-ray unremarkable white count normal sed rate minimally elevated suspect he has gout he has had problems with gout in the past we will start him on prednisone taper indomethacin him follow-up with primary care if not improving Medical Records I reviewed the patient's medical records. Lab Data I reviewed the patient's lab results. 04/23/25 08:38 Radiology Impressions Knee X-Ray 04/23/25 08:15 IMPRESSION: There is a fnuzahts-lr-ieqcd amount of joint fluid present with no fracture or dislocation appreciated. If there is persistent pain and swelling with limited range of motion then consider MRI. Laboratory Results WBC 8.05 10^3/uL (3.29-11.43) 04/23/25 08:38 RBC 5.21 10^6/uL (3.85-5.65) 04/23/25 08:38 Hgb 15.60 g/dL (11.27-16.99) 04/23/25 08:38 Hct 46.8 % (37-53) 04/23/25 08:38 MCV 89.8 fl (82-101) 04/23/25 08:38 MCH 29.9 pg (27-33) 04/23/25 08:38 MCHC 33.3 g/dL (30-55) 04/23/25 08:38 RDW 14.6 % (12.1-15.1) 04/23/25 08:38 Plt Count 271 10^3/cmm (157-399) 04/23/25 08:38 MPV 9.3 fL (7.4-10.4) 04/23/25 08:38 Neut % (Auto) 68.9 % 04/23/25 08:38 Lymph % (Auto) 18.4 % 04/23/25 08:38 [place] % (Auto) 7.7 % 04/23/25 08:38 Eos % (Auto) 4.1 % 04/23/25 08:38 Baso % (Auto) 0.7 % 04/23/25 08:38 Neut # (Auto) 5.54 10^3/uL (1.8-7.7) 04/23/25 08:38 Lymph # (Auto) 1.5 10^3/uL (0.8-4.8) 04/23/25 08:38 [place] # (Auto) 0.6 10^3/uL (0.2-0.9) 04/23/25 08:38 Eos # (Auto) 0.3 10^3/uL (0.0-0.8) 04/23/25 08:38 Baso # (Auto) 0.1 10^3/uL (0.0-0.1) 04/23/25 08:38 Nucleated RBC % (auto) 0 % 04/23/25 08:38 Nucleated RBCs # 0.0 /100WBC 04/23/25 08:38 ESR 29 mm/hr (0-10) H 04/23/25 08:38 All radiology interpretation(s) finalized by discharge Discharge Plan Discharge Patient Disposition: Home Clinical Impression: Gout Qualifiers: Gout site: ankle Gout etiology: unspecified cause Chronicity: acute Laterality: left Qualified Code(s): M10.9 - Gout, unspecified Condition: Stable Prescriptions: New prednisone 20 mg tablet 20 mg PO TID Qty: 15 0RF Rx Instructions: 1 p.o. 3 times daily x3 days, 1 p.o. twice daily x2 days, 1 p.o. daily x2 days indomethacin 50 mg capsule 50 mg PO TID Qty: 20 0RF Rx Instructions: administer with food or milk No Action colchicine [Colcrys] 0.6 mg tablet See Rx Instructions .ROUTE .COMPLEX Qty: 30 1RF Rx Instructions: Take 2 tablets by mouth at once, then another tablet 1 hour later. Repeat the same dosing at the earliest signs of flare-up. amlodipine 10 mg Tablet 10 mg PO DAILY naproxen 500 mg tablet 500 mg PO BID PRN (Reason: inflammation and pain) allopurinol 100 mg tablet 200 mg PO DAILY Discharge Orders: Discharge ED (Routine); Ordered 04/23/25 Ordered By: Nba Jorge Referrals: Lynn Iqbal MD [Primary Care Provider, Family Practice] Discharge Diet: Usual diet Discharge Activity: Increase activity as tolerated Patient Instructions: Gout (ED), Opioid Safety, Pain Management, Patient Portal & [place] Instructions Activity Restrictions/Additional Instructions: Thank you for choosing [facility] for your healthcare needs today. It is very important that you follow up as instructed or that you return to the Emergency Department should you have concerns or if your condition changes or worsens in any way. Print Language: Kazakh Coding Level of Care Code ED High School Counselor for Miladys Lockwood
[2025-04-23 09:54] VITALS: BP 147/94; PULSE 83; RESP 16; O2SAT 98
== END 2025-04-23 10:17 | disposition home or self-care (01) ==
PROVIDERS: Emergency Provider Family Medicine; PCP Family Medicine
DX: M10.9 Gout, unspecified (principal)
CPT/HCPCS: 36415; 73562; 85025; 85651; 96374; 96375; 99284; J1885; J2919

== ENCOUNTER 2025-05-09 03:13 | Emergency (ER) | payer OTHER, SELFPAY ==
--- OUTSIDE RECORDS SUMMARY | 2025-05-09 03:19 | XMS_ITS | Clinical Summary ---
Author Organization [facility] Address [address] 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
--- OUTSIDE RECORDS SUMMARY | 2025-05-09 03:19 | XMS_ITS | Encounter Summary ---
Author Organization [facility] Address [address] [place] [address] Care Team Providers Care Fisher Mussel Name Role Phone Unavailable Primary Care Provider Unavailabl e Encounter Details Date Type Department Care Team (Late st Contact Info) Description 04/30/2009 Emergency [facility] [address] 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
--- OUTSIDE RECORDS SUMMARY | 2025-05-09 03:19 | XMS_ITS | Clinical Summary ---
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
[2025-05-09 03:23] VITALS: BP 119/98; PULSE 89; RESP 20; TEMP 37; O2SAT 89; BMI 36.2
[2025-05-09 03:42] VITALS: BP 119/98; PULSE 81; RESP 18; O2SAT 97
[2025-05-09] MEDS: oxyCODONE-APAP 5-325 mg Tablet 2 TAB PO (04:08)
--- NOTE | 2025-05-09 04:09 | W.ED.EXTPRO ---
HPI - Extremity Problem General: Chief complaint: Extremity Problem,Nontraumatic Stated complaint: RT Knee Pain Time Seen by Provider: 05/09/25 03:36 History of Present Illness: Patient is a 49-year-old male presenting with acute right knee pain and swelling. Symptoms began last Friday while at work, initially affecting the lateral aspect of the knee. The pain progressively worsened despite attempting to self-medicate with naproxen, which the patient reports is usually effective when taken early in a flare-up. Last night, while sleeping, the patient reports a popping sensation in the knee after rolling onto his left side, which woke him from sleep. This morning, the pain has spread to involve the entire knee joint with particular tenderness at the inferior aspect of the patella, which the patient describes as feeling 'like somebody's sticking a damn ice pick at the bottom of my kneecap.' The patient was seen in the ED two weeks ago for a similar presentation, at which time the knee was reportedly almost twice as swollen as today. At that visit, he was diagnosed with a gout flare, received steroids, anti-inflammatories, and tramadol, with significant improvement within a few days. The patient reports that colchicine has been effective for his gout flares in the past when taken early (typically two pills initially, followed by one additional pill if needed). Related Data Home Medications ?Medication ?Instructions ?Recorded ?Confirmed allopurinol 100 mg tablet 200 mg PO DAILY 07/04/23 04/23/25 amlodipine 10 mg tablet 10 mg PO DAILY 02/18/25 04/23/25 naproxen 500 mg tablet 500 mg PO BID PRN inflammation and 04/23/25 04/23/25 pain Previous Rx's ?Medication ?Instructions ?Recorded indomethacin 50 mg capsule 50 mg PO TID #20 caps 04/23/25 prednisone 20 mg tablet 20 mg PO TID #15 tabs 04/23/25 colchicine 0.6 mg tablet (Colcrys) See Rx Instructions .Route 05/09/25 .COMPLEX #30 tabs methylprednisolone 4 mg tablets in See Rx Instructions PO .COMPLEX 05/09/25 a dose pack (Medrol (Kelton)) #21 ea Allergies Allergy/AdvReac Type Severity Reaction Status Date / Time No Known Allergies Allergy Verified 04/05/25 08:33 [facility] Medical History Gout HTN (hypertension) Cervical disc disease Back pain Surgical History History of lumbar surgery History of testicular surgery H/O hand surgery History of ankle surgery H/O cervical discectomy Social History Smoking and tobacco/nicotine status: unknown if used tobacco/nicotine Alcohol intake: current Alcohol intake frequency: holidays/special occasions only Substance/Drug Use: never Physical Exam Const: COMMON NORMALS: no acute distress GENERAL APPEARANCE: cooperative; not ill appearing and not frail appearing HENMT: COMMON NORMALS: normocephalic, atraumatic and Normal external nose present HEAD & SCALP: normocephalic and atraumatic FACE & SINUS: normal facial exam and face symmetric NOSE: Normal external nose present Eye: COMMON NORMALS: Equal, round and reactive pupils present and EOMs intact bilaterally PUPIL: Yes Equal, round and reactive pupils present Neck/C-Spine: GENERAL: Yes trachea midline Chest: CHEST: Yes Symmetrical chest wall rise Resp: COMMON NORMALS: normal respiratory effort, No retractions, No use of accessory muscles and clear to auscultation bilaterally AUSCULTATION: clear to auscultation bilaterally Cardio: COMMON NORMALS: regular rate and regular rhythm RATE: regular rate RHYTHM: regular rhythm GI: COMMON NORMALS: Normal to inspection, nondistended, normoactive bowel sounds present Extremity: NARRATIVE EXTREMITY EXAM: Examination of the right knee reveals palpable effusion. The knee is warm to the touch. It is not red. Tenderness is present in the lateral joint line. Not so much the medial joint line. There is no deformity. Pulses and sensation are intact to touch distally. Neuro: RAYMUNDO COMA SCALE: document GCS findings Raymundo coma scale eye opening: Spontaneous [place] coma scale verbal response: Orientated Ray[place] coma scale motor response: Obey commands [place] coma scale total score: 15 SENSORY EXAM: Yes extremities (intact) Psych: COMMON NORMALS: speech normal SPEECH: Yes normal speech Skin: COMMON NORMALS: no rashes or lesions noted GENERAL SKIN EXAM: no rashes or lesions noted Course Vital Signs: Vital signs: Vital Signs Temperature 98.6 F 05/09/25 03:23 Pulse Rate 87 05/09/25 04:41 Respiratory Rate 18 05/09/25 04:41 Blood Pressure 146/104 05/09/25 04:41 Pulse Oximetry 97 05/09/25 04:41 Oxygen Delivery Me thod Room Air 05/09/25 03:42 MDM - Extremity (Nontraumatic) Medical Decision Making Laboratory studies done 2 weeks ago for similar symptoms showed no leukocytosis, but a sed rate of 29, CRP of 45. He improved with prednisone and indomethacin at that time he does have a history of gout. Without any significant injury, 1 must assume recurrence of gout. X-ray showed a knee effusion 2 weeks ago as well without any fracture. He has been given colchicine here as well as prednisone. He will be dispensed pain medication for home. We will dispense him another dose of colchicine for later today. He will be given a prescription for Colcrys twice daily. He will also be given a Medrol Dosepak. Outpatient follow-up. He may need further maintenance treatment for his gout once his flare subsides. Outpatient follow-up. No radiology studies performed this visit Discharge Plan Discharge Patient Disposition: Home Clinical Impression: Gout Qualifiers: Gout site: ankle Gout etiology: unspecified cause Chronicity: acute Laterality: left Qualified Code(s): M10.9 - Gout, unspecified Condition: Stable Prescriptions: New methylprednisolone [Medrol (K[place]ton)] 4 mg tablets,dose pack See Rx Instructions .ROUTE .COMPLEX Qty: 21 0RF Rx Instructions: orally per package directions Continued colchicine [Colcrys] 0.6 mg tablet See Rx Instructions .ROUTE .COMPLEX Qty: 30 1RF Rx Instructions: Take 2 tablets by mouth at once, then another tablet 1 hour later. Repeat the same dosing at the earliest signs of flare-up. No Action amlodipine 10 mg Tablet 10 mg PO DAILY naproxen 500 mg tablet 500 mg PO BID PRN (Reason: inflammation and pain) prednisone 20 mg tablet 20 mg PO TID Qty: 15 0RF Rx Instructions: 1 p.o. 3 times daily x3 days, 1 p.o. twice daily x2 days, 1 p.o. daily x2 days indomethacin 50 mg capsule 50 mg PO TID Qty: 20 0RF Rx Instructions: administer with food or milk allopurinol 100 mg tablet 200 mg PO DAILY Discharge Orders: Discharge ED (Routine); Ordered 05/09/25 Ordered By: Mohan Bashir Referrals: Lynn Iqbal MD [Primary Care Provider, Family Practice] - 1-3 days Patient Instructions: Gout (ED), Opioid Safety, Pain Management, Patient Portal & [place] Instructions Activity Restrictions/Additional Instructions: Medication as directed. Take the colchicine in a couple of hours. You may use pain medication as needed today. Ice the knee which can help with pain and swelling. Tapering dose of steroid as instructed. Follow-up with your doctor. 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
[2025-05-09 04:41] VITALS: BP 146/104; PULSE 87; RESP 18; O2SAT 97
== END 2025-05-09 04:43 | disposition home or self-care (01) ==
PROVIDERS: Emergency Provider Emergency Medicine; PCP Family Medicine
DX: M10.9 Gout, unspecified (principal); M25.561 Pain in right knee; I10 Essential (primary) hypertension; M25.461 Effusion, right knee
CPT/HCPCS: 99283; J7512; J9999